=== PATIENT | male | born 1955 | race Caucasian/White ===

== ENCOUNTER 2016-05-04 18:28 | Emergency (ER) | payer MEDICARE, OTHER ==
[2016-05-04 18:39] VITALS: RESP 18
--- NOTE | 2016-05-04 18:56 | ED ---
General Adult HPI - General Chief complaint: Recheck/Abnormal Lab/Rx Stated complaint: Choking Time Seen by Provider: 05/04/16 18:37 Source: EMS, RN notes reviewed Mode of arrival: EMS Limitations: altered mental status - History of Present Illness Initial comments: Patient is a 60-year-old male with chief complaint of choking on tacos this evening. Patient reports of this first-time his ever choked on food. Patient has a history of dementia. Patient reports that he has never tried to swallow or drink anything after choking. Patient denies any cough or shortness of breath at this time. Patient reports that he feels well this time. He states that he has no other pain or neck pain at this time. Patient denies any recent fever, chills, shortness of breath, chest pain, back pain, abdominal pain, nausea vomiting, numbness or tingling, dysuria or hematuria, constipation or diarrhea, headaches or visual changes, or any other current symptoms - Related Data Allergies Allergy/AdvReac Type Severity Reaction Status Date / Time No Known Allergies Allergy Verified 05/04/16 18:39 Review of Systems ROS Statement: Those systems with pertinent positive or pertinent negative responses have been documented in the HPI. ROS Other: All systems not noted in ROS Statement are negative. Past Medical History Past Medical History: Unable to Obtain, Dementia, Hypertension History of Any Multi-Drug Resistant Organisms: None Reported Past Surgical History: Unable to Obtain Past Psychological History: No Psychological Hx Reported Smoking Status: Never smoker Past Alcohol Use History: None Reported Past Drug Use History: None Reported General Exam - General Exam Comments Initial Comments: Patient is a pleasant 60-year-old male. No acute distress. Limitations: altered mental status General appearance: alert, in no apparent distress Head exam: Present: atraumatic, normocephalic, normal inspection Eye exam: Present: normal appearance, PERRL, EOMI. Absent: scleral icterus, conjunctival injection, periorbital swelling ENT exam: Present: normal exam, normal oropharynx, mucous membranes moist, other (Vision has somewhat of a muffled voice.) Neck exam: Present: normal inspection. Absent: tenderness, meningismus, lymphadenopathy Respiratory exam: Present: normal lung sounds bilaterally. Absent: respiratory distress, wheezes, rales, rhonchi, stridor Cardiovascular Exam: Present: regular rate, normal rhythm, normal heart sounds. Absent: systolic murmur, diastolic murmur, rubs, gallop, clicks GI/Abdominal exam: Present: soft, normal bowel sounds. Absent: distended, tenderness, guarding, rebound, rigid Extremities exam: Present: normal inspection, full ROM, normal capillary refill. Absent: tenderness, pedal edema, joint swelling, calf tenderness Back exam: Present: normal inspection Neurological exam: Present: alert, oriented X3, CN II-XII intact Psychiatric exam: Present: normal affect, normal mood Skin exam: Present: warm, dry, intact, normal color. Absent: rash Course Vital Signs 05/04/16 05/04/16 05/04/16 18:37 18:40 20:28 Temperature 98.5 F 97.2 F L Pulse Rate 81 72 Respiratory 18 18 18 Rate Blood Pressure 121/80 112/68 O2 Sat by Pulse 97 97 Oximetry Medical Decision Making - Medical Decision Making Patient is a 60-year-old male with chief complaint of choking on tacos this evening. Patient reports of this first-time his ever choked on food. Patient has a history of dementia. Patient reports that he has never tried to swallow or drink anything after choking. Patient denies any cough or shortness of breath at this time. Chest x-ray was reviewed and is negative for any acute process. Soft tissue neck x-ray was also obtained. No evidence of epiglottitis or swelling of the retropharyngeal structures. Patient will be discharged and cleared to go home at this time. Patient has been advised to remain on a thickened liquid diet until he can be cleared by his primary care physician or having a swallow study. Patient and patient's caregiver understand the treatment plan will comply. Return parameters were discussed. 05/04/16 19:19 Currently to decide any evidence for acute pulmonary disease. This is read by Dr. Vences. Soft tissue neck x-ray shows a negative study. Normal-appearing epiglottis. Retropharyngeal soft tissues are within normal limits. No radiopaque foreign body. - Radiology Data Radiology results: report reviewed Chest x-ray and soft tissue neck x-ray are negative for any acute process. No evidence of epiglottic Bernabe or retropharyngeal swelling. Chest x-ray shows no evidence of any pneumonias. Disposition Clinical Impression: Choking due to food (regurgitated) Disposition: HOME SELF-CARE Condition: Good Instructions: Foreign Body in Pharynx (ED) Additional Instructions: Patient is recommended to have thickened liquids until seen by primary care provider. They may need to do a swallow study determine if patient can continue with the normal consistency of food, patient may need a softened food diet for continued thickened liquids permanently. Return to emergency department if any alarming signs or symptoms occur. Referrals: Case Marrero MD [Primary Care Provider] - 1-2 days Time of Disposition: 19:25
--- NOTE | 2016-05-04 19:15 | XR ---
EXAMINATION TYPE: XR soft tissue neck DATE OF EXAM: 05/04/2016 7:06 PM COMPARISON: NONE HISTORY: pain TECHNIQUE: 2 views of the soft tissues of the neck are submitted. FINDINGS: The airway is patent. Normal appearing epiglottis. Retropharyngeal soft tissues are withi n normal limits. No evidence for radiopaque foreign body. IMPRESSION: Negative study
--- NOTE | 2016-05-04 19:15 | XR ---
EXAMINATION TYPE: XR chest 2V DATE OF EXAM: 05/04/2016 7:06 PM HISTORY: Shortness of breath. COMPARISON: 06/16/2010 TECHNIQUE: Single view of the chest is submitted. FINDINGS: Demonstrated are scattered senescent parenchymal change. COPD changes. There is no evidence for focal infiltrate. The heart is stable. Hilar and mediastinal structures are within normal limits. Degenerative changes are seen of the dorsal spine. IMPRESSION: 1. Chronic changes without evidence for acute pulmonary disease.
[2016-05-04 20:30] VITALS: BP 112/68; PULSE 72; TEMP 97.2
== END 2016-05-04 20:36 | disposition home or self-care (01) ==
LOC: EC 18:28
DX: T17.228A Food in pharynx causing other injury, initial encounter (principal)
CPT/HCPCS: 70360; 71020; 99283

== ENCOUNTER 2020-01-04 17:50 | Emergency (ER) | payer MEDICARE ==
--- NOTE | 2020-01-04 18:18 | ED ---
General Adult HPI - General Chief complaint: Fever Stated complaint: COVID Time Seen by Provider: 01/04/20 18:02 Source: patient, EMS Mode of arrival: EMS Limitations: no limitations - History of Present Illness Initial comments: Dictation was produced using [employer] dictation software. please excuse any grammatical, word or spelling errors. This patient was cared for during a federal and state declared state of emergency secondary to Covid 19 Chief Complaint: 64-year-old male sent in from a [facility] for positive cocaine RapidTest History of Present Illness: A C4-year-old male he has multiple comorbidities. He is currently a resident at [facility]. His past medical history dementia and hypertension. Sent to us for positive rapid Covid test. Patient is a poor historian at this time. This is allegedly his baseline. Apparently [facility] staff complaint of uncontrolled fevers. He was given alternating doses of Motrin and Tylenol. Patient does report some mild dyspnea and fever. Able to obtain serial mental status PHYSICAL EXAM: General Impression: Alert and oriented x2/4, not in acute distress HEENT: Normocephalic atraumatic, extra-ocular movements intact, pupils equal and reactive to light bilaterally, mucous membranes moist. Cardiovascular: Heart regular rate and rhythm Chest: Able to complete full sentences, no retractions, no tachypnea Abdomen: abdomen soft, non-tender, non-distended, no organomegaly Musculoskeletal: Pulses present and equal in all extremities, no peripheral edema Motor: no focal deficits noted Neurological: CN II-XII grossly intact, no focal motor or sensory deficits noted Skin: Intact with no visualized rashes Psych: Normal affect and mood ED course: 64-year-old male presents today with positive rapid rotavirus test and fevers. Vital signs upon arrival are within acceptable limits. Patient is not hypoxic. He is well-appearing. Patient repeatedly saying that he wants to go back home. Not showing any signs of respiratory distress.Laboratory evaluation obtained. CBC is unremarkable. Coag panel is negative. Metabolic panel shows mild hyponatremia 0 129. Slightly secondary to dehydration with a BUN of 29 and creatinine 0.76. CRP is 52.7. LDH is 499. D-dimer is positive. CT angios the chest shows no pulmonary embolus. Patient has stable vital signs please show any respiratory distress. He is not hypoxic. Patient will be discharge back to [facility]. Will need isolation for 14 days EKG interpretation: Ventricular rate 3, normal sinus rhythm,. Interval 1:30, QRS 100, QTC 425. No W[place] prolongation, no QTC prolongation, no ST or T-wave changes noted. No old EKG for comparison. Overall, this EKG is unremarkable - Related Data Home Medications Medication Instructions Recorded Confirmed Acetaminophen [Tylenol] 650 mg PEG/G-TUBE Q6H PRN 01/04/20 01/04/20 Docusate Oral Soln [Colace Oral 100 mg PEG/G-TUBE BID@0800,199901/04/20 01/04/20 Soln] Ipratropium-Albuterol Nebulize 3 ml INHALATION TID@0000,0800,1600 01/04/20 01/04/20 [Duoneb 0.5 mg-3 mg/3 ml Soln] Valproic Acid Oral Soln [Depakene 250 mg PEG/G-TUBE Q6H 01/04/20 01/04/20 Syrup] polyethylene glycoL 3350 [Miralax] 17 gm PEG/G-TUBE BID@0800,199901/04/20 01/04/20 traZODone HCL 100 mg PEG/G-TUBE HS@199901/04/20 01/04/20 Allergies Allergy/AdvReac Type Severity Reaction Status Date / Time hydrocodone Allergy Unknown Verified 01/04/20 21:21 Review of Systems ROS Statement: Those systems with pertinent positive or pertinent negative responses have been documented in the HPI. ROS Other: All systems not noted in ROS Statement are negative. Past Medical History Past Medical History: Unable to Obtain, Dementia, Hypertension History of Any Multi-Drug Resistant Organisms: None Reported Past Surgical History: Unable to Obtain Past Psychological History: No Psychological Hx Reported Smoking Status: Former smoker Past Alcohol Use History: None Reported Past Drug Use History: None Reported General Exam Limitations: no limitations Course Vital Signs 01/04/20 01/04/20 17:53 20:00 Temperature 98.8 F Pulse Rate 91 89 Respiratory 18 18 Rate Blood Pressure 112/75 O2 Sat by Pulse 95 Oximetry Medical Decision Making - Lab Data Result diagrams: 01/04/20 18:03 01/04/20 19:17 Lab Results 01/04/20 01/04/20 01/04/20 Range/Units 18:03 19:17 19:17 WBC 8.5 (3.8-10.6) k/uL RBC 4.02 L (4.30-5.90) m/uL Hgb 12.1 L (13.0-17.5) gm/dL Hct 37.6 L (39.0-53.0) % MCV 93.5 (80.0-100.0) fL MCH 30.0 (25.0-35.0) pg MCHC 32.1 (31.0-37.0) g/dL RDW 14.3 (11.5-15.5) % Plt Count 544 H (150-450) k/uL MPV 6.4 Neutrophils % (Manual) 70 % Band Neuts % (Manual) 5 % Lymphocytes % (Manual) 5 % Monocytes % (Manual) 17 % Metamyelocytes % 3 % Neutrophils # (Manual) 6.30 (1.3-7.7) k/uL Lymphocytes # (Manual) 0.43 L (1.0-4.8) k/uL Monocytes # (Manual) 1.45 H (0-1.0) k/uL Metamyelocytes # (Man) 0.26 H (0) k/uL Nucleated RBCs 0 (0-0) /100 WBC Manual Slide Review Performed PT 10.6 (9.0-12.0) sec INR 1.0 (<1.2) APTT 26.3 (22.0-30.0) sec D-Dimer 2.20 H (<0.60) mg/L FEU Sodium 129 L (137-145) mmol/L Potassium 4.5 (3.5-5.1) mmol/L Chloride 94 L (98-107) mmol/L Carbon Dioxide 31 H (22-30) mmol/L Anion Gap 4 mmol/L BUN 29 H (9-20) mg/dL Creatinine 0.76 (0.66-1.25) mg/dL Est GFR (CKD-EPI)AfAm >90 (>60 ml/min/1.73 sqM) Est GFR (CKD-EPI)NonAf >90 (>60 ml/min/1.73 sqM) Glucose 88 (74-99) mg/dL Plasma Lactic Acid Jack (0.7-2.0) mmol/L Calcium 8.8 (8.4-10.2) mg/dL Magnesium 1.8 (1.6-2.3) mg/dL Total Bilirubin 0.3 (0.2-1.3) mg/dL AST 36 (17-59) U/L ALT 20 (4-49) U/L Alkaline Phosphatase 66 (38-126) U/L Lactate Dehydrogenase 499 (313-618) U/L C-Reactive Protein 52.7 H (<10.0) mg/L Total Protein 6.2 L (6.3-8.2) g/dL Albumin 3.0 L (3.5-5.0) g/dL 01/04/20 Range/Units 19:17 WBC (3.8-10.6) k/uL RBC (4.30-5.90) m/uL Hgb (13.0-17.5) gm/dL Hct (39.0-53.0) % MCV (80.0-100.0) fL MCH (25.0-35.0) pg MCHC (31.0-37.0) g/dL RDW (11.5-15.5) % Plt Count (150-450) k/uL MPV Neutrophils % (Manual) % Band Neuts % (Manual) % Lymphocytes % (Manual) % Monocytes % (Manual) % Metamyelocytes % % Neutrophils # (Manual) (1.3-7.7) k/uL Lymphocytes # (Manual) (1.0-4.8) k/uL Monocytes # (Manual) (0-1.0) k/uL Metamyelocytes # (Man) (0) k/uL Nucleated RBCs (0-0) /100 WBC Manual Slide Review PT (9.0-12.0) sec INR (<1.2) APTT (22.0-30.0) sec D-Dimer (<0.60) mg/L FEU Sodium (137-145) mmol/L Potassium (3.5-5.1) mmol/L Chloride (98-107) mmol/L Carbon Dioxide (22-30) mmol/L Anion Gap mmol/L BUN (9-20) mg/dL Creatinine (0.66-1.25) mg/dL Est GFR (CKD-EPI)AfAm (>60 ml/min/1.73 sqM) Est GFR (CKD-EPI)NonAf (>60 ml/min/1.73 sqM) Glucose (74-99) mg/dL Plasma Lactic Acid Jack 0.8 (0.7-2.0) mmol/L Calcium (8.4-10.2) mg/dL Magnesium (1.6-2.3) mg/dL Total Bilirubin (0.2-1.3) mg/dL AST (17-59) U/L ALT (4-49) U/L Alkaline Phosphatase (38-126) U/L Lactate Dehydrogenase (313-618) U/L C-Reactive Protein (<10.0) mg/L Total Protein (6.3-8.2) g/dL Albumin (3.5-5.0) g/dL Disposition Clinical Impression: COVID-19 Disposition: HOME SELF-CARE Condition: Fair Instructions (If sedation given, give patient instructions): Fever in Adults (ED) Additional Instructions: Today you were evaluated for symptoms consistent with upper respiratory infection. There is concern that perhaps your symptomatology may represent C ovid 19. Your are stable for discharge, however it is instructed to to seek immediate medical attention especially if you develop worsening symptoms especially respiratory distress. In the meantime please remain in quarantine for 14 days. For any other questions please contact [facility] for here in emergency department or [facility] at [phone] Patient will need isolation for 14 days. Is patient prescribed a controlled substance at d/c from ED?: No Referrals: Yoni Cruz MD [Primary Care Provider] - 1-2 days Time of Disposition: 22:01
--- NOTE | 2020-01-04 18:37 | XR ---
EXAMINATION TYPE: XR chest 1V portable DATE OF EXAM: 01/04/2020 COMPARISON: 05/04/2016 HISTORY: Hypertension TECHNIQUE: FINDINGS: There is no heart failure nor confluent pneumonic infiltrate. Costophrenic angles are clear . There is some coarsening of the interstitial markings left lower lobe. There is mild pleural thicke chris at the left lung apex. Bony thorax is intact. IMPRESSION: There is some mild pleural thickening left lung apex unchanged. There is a new mild inter stitial infiltrate left lung base compared to old exam. Normal heart.
[2020-01-04 19:32] LABS: HCT 37.6 % (39.0-53.0); HGB 12.1 gm/dL (13.0-17.5); MCHC 32.1 g/dL (31.0-37.0); MCV 93.5 fL (80.0-100.0); Mean Platelet Volume 6.4; Platelet Count 544 k/uL (150-450); RBC 4.02 m/uL (4.30-5.90); RDW 14.3 % (11.5-15.5); WBC 8.5 k/uL (3.8-10.6)
[2020-01-04 19:44] LABS: ALT 20 U/L (4-49); AST 36 U/L (17-59); African American GFR (CKD) >90 (>60 ml/min/1.73 sqM); Alkaline Phosphatase 66 U/L (38-126); Anion Gap 4 mmol/L; Blood Urea Nitrogen 29 mg/dL (9-20); C Reactive Protein 52.7 mg/L (<10.0); Calcium 8.8 mg/dL (8.4-10.2); Carbon Dioxide 31 mmol/L (22-30); Chloride 94 mmol/L (98-107); Glucose 88 mg/dL (74-99); LDH 499 U/L (313-618); Magnesium 1.8 mg/dL (1.6-2.3); Non-African American GFR(CKD) >90 (>60 ml/min/1.73 sqM); Potassium 4.5 mmol/L (3.5-5.1); Sodium 129 mmol/L (137-145); Total Bilirubin 0.3 mg/dL (0.2-1.3); Total Protein 6.2 g/dL (6.3-8.2)
[2020-01-04 19:52] LABS: Partial Thromboplastin Time 26.3 sec (22.0-30.0); Prothrombin Time 10.6 sec (9.0-12.0)
[2020-01-04 20:00] LABS: D-Dimer 2.2 mg/L FEU (<0.60)
[2020-01-04 20:04] VITALS: PULSE 89
--- NOTE | 2020-01-04 21:43 | CT ---
EXAMINATION TYPE: CT angio chest DATE OF EXAM: 01/04/2020 COMPARISON: None HISTORY: elevated d-dimer CT DLP: 275..3 mGycm Automated exposure control for dose reduction was used. CONTRAST: Performed with IV Contrast, patient injected with 100 mL of Isovue 370. There are 3-D post processed images. There is some patchy scarring and atelectasis at the lung bases. Heart is borderline enlarged. There is no pericardial effusion. Exam limited by motion. There is some pleural calcification at the left p osterior lung base. There is no pleural fluid. There is no mediastinal adenopathy. There is normal co ntrast opacification of the pulmonary arteries. There are no filling defects. Ascending aorta measure s 3.8 cm. There are no hilar masses. There is mild spurring in the thoracic spine. IMPRESSION: No evidence of pulmonary embolism. There is scarring and atelectasis at the lung bases. There is probably some mild calcified pleural pl aque left lung base. Exam limited by motion.
[2020-01-04 21:56] LABS: Band Neutrophils % 5 %; Lymphocytes # (M) 0.43 k/uL (1.0-4.8); Metamyelocytes # (M) 0.26 k/uL (0); Metamyelocytes % 3 %; Monocytes # (M) 1.45 k/uL (0-1.0); Neutrophils % (M) 70 %; Nucleated Red Blood Cells 0 /100 WBC (0-0); Total Cells Counted 200
[2020-01-04] MEDS ORDERED: DEXAMETHASONE SOD PHOSPHATE 10 MG/ML 1 ML VIAL IV STA (22:01)
[2020-01-04 23:30] VITALS: BP 98/64; RESP 16; TEMP 98.9
[2020-01-05 03:34] LABS: Ferritin 314.2 ng/mL (22.0-322.0)
== END 2020-01-04 23:30 | disposition home or self-care (01) ==
LOC: EEVIPCON 17:50 → EC 17:50
DX: U07.1 COVID-19 (principal); I10 Essential (primary) hypertension; Z79.899 Other long term (current) drug therapy; Z88.5 Allergy status to narcotic agent; Z87.891 Personal history of nicotine dependence; E87.1 Hypo-osmolality and hyponatremia; E86.0 Dehydration
CPT/HCPCS: 36415; 93005; 85379; 80053; 82728; 83605; 83615; 83735; 85025; 85610; 85730; 86140; 87040; 84145; 71045; 71275; 99284; U0003; Q9967

== ENCOUNTER 2020-03-01 17:13 | Observation (INO) | payer MEDICARE, OTHER ==
--- NOTE | 2020-03-01 17:23 | ED ---
General Adult HPI - General Chief complaint: Recheck/Abnormal Lab/Rx Stated complaint: PULLED OUT PEG TUBE Time Seen by Provider: 03/01/20 17:16 Source: EMS Mode of arrival: EMS Limitations: altered mental status - History of Present Illness Initial comments: Patient presents to the ED by ambulance from his [facility] after he reportedly pulled out his PEG tube today. Patient's 20 Fr PEG tube was sent with the patient to the ED. Patient has cognitive impairment and is unable to provide any history at this time. ED nursing staff is attempting to call the patient's fdc at this time to obtain more details on when and where the patient's PEG tube was initially placed. - Related Data Home Medications Medication Instructions Recorded Confirmed Acetaminophen [Tylenol] 650 mg PEG/G-TUBE Q6H PRN 01/04/20 01/04/20 Docusate Oral Soln [Colace Oral 100 mg PEG/G-TUBE BID@0800,199901/04/20 01/04/20 Soln] Ipratropium-Albuterol Nebulize 3 ml INHALATION TID@0000,0800,1600 01/04/20 01/04/20 [Duoneb 0.5 mg-3 mg/3 ml Soln] Valproic Acid Oral Soln [Depakene 250 mg PEG/G-TUBE Q6H 01/04/20 01/04/20 Syrup] polyethylene glycoL 3350 [Miralax] 17 gm PEG/G-TUBE BID@0800,199901/04/20 01/04/20 traZODone HCL 100 mg PEG/G-TUBE HS@199901/04/20 01/04/20 Allergies Allergy/AdvReac Type Severity Reaction Status Date / Time hydrocodone Allergy Unknown Verified 03/01/20 17:17 Review of Systems ROS Statement: Those systems with pertinent positive or pertinent negative responses have been documented in the HPI. ROS Other: All systems not noted in ROS Statement are negative. Limitations: ROS unobtainable due to patients medical condition Past Medical History Past Medical History: Unable to Obtain, Dementia, Hypertension Additional Past Medical History / Comment(s): covid december 2019 History of Any Multi-Drug Resistant Organisms: None Reported Past Surgical History: Unable to Obtain Past Psychological History: No Psychological Hx Reported Smoking Status: Former smoker Past Alcohol Use History: None Reported Past Drug Use History: None Reported General Exam Limitations: altered mental status General appearance: alert, in no apparent distress Head exam: Present: atraumatic, normocephalic Eye exam: Present: normal appearance ENT exam: Present: mucous membranes moist Neck exam: Present: other (Trachea is in midline) Respiratory exam: Present: normal lung sounds bilaterally. Absent: respiratory distress, wheezes, rales, rhonchi, stridor Cardiovascular Exam: Present: regular rate, normal rhythm, normal heart sounds, other (Normal radial pulses bilaterally) GI/Abdominal exam: Present: soft, normal bowel sounds, other (Feeding tube stoma is noted on examination). Absent: distended, tenderness, guarding Neurological exam: Present: alert Skin exam: Present: warm, dry, intact, normal color Course Vital Signs 03/01/20 17:14 Temperature 97.4 F L Pulse Rate 83 Respiratory 18 Rate Blood Pressure 107/87 O2 Sat by Pulse 93 L Oximetry - Reevaluation(s) Reevaluation #1: 03/01/20 17:49 [facility] reports that the patient's PEG tube was placed on 12/20/2019 at [facility]. 03/01/20 18:59 There is no 20 Fr feeding tube available for placement in our hospital. I attempted to place an 18 Fr feeding tube, but I was unsuccessful. 03/01/20 19:03 Case and H&P were discussed with Dr. Saunders (GI). She recommends attempted to place a small Coats catheter in the patient's feeding tube stoma if possible. She recommends admitting the patient to his primary care service, and she states that she will replace the patient's feeding tube tomorrow. She has no further recommendations at this time. 03/01/20 19:04 Case, H&P and my discussion with Dr. Saunders as above were discussed with Dr. Patel. He accepts hospital admission. He has no further recommendations at this time. 03/01/20 19:11 I was able to successfully place a 14 Fr catheter in the patient's feeding tube stoma. Disposition Clinical Impression: Encounter for feeding tube placement Disposition: ADMITTED IP TO THIS HOSP Condition: Stable Is patient prescribed a controlled substance at d/c from ED?: No Referrals: Yoni Cruz MD [Primary Care Provider] - 1-2 days Time of Disposition: 19:06
[2020-03-01] MEDS: SODIUM CHLORIDE 0.9% 1,000 ML IV SCH (19:59)
[2020-03-02] MEDS: SODIUM CHLORIDE 0.9% 1,000 ML IV SCH (07:33)
[2020-03-02 08:21] VITALS: BP 101/65; PULSE 116; RESP 16; TEMP 98.7
[2020-03-02 09:55] VITALS: BMI 15.7
[2020-03-02] MEDS ORDERED: ACETAMINOPHEN TAB 325 MG TAB PEG/G-TUBE PRN (12:56)
[2020-03-02] MEDS ORDERED: polyethylene glycoL 3350 17 GM POWD.PACK PEG/G-TUBE PRN (12:56)
[2020-03-02] MEDS ORDERED: bisacodyL 10 MG SUPP RECTAL PRN (12:56)
[2020-03-02] MEDS ORDERED: VALPROIC ACID ORAL SOLN 250 MG/5 ML CUP PEG/G-TUBE SCH (13:00)
--- NOTE | 2020-03-02 13:04 | CONS ---
CONSULTATION DATE OF DICTATION: March 02, 2020 Patient is a 64-year-old pleasant white male with history of dementia, a [facility] who had a PEG tube placement about a year ago. Came to the emergency room last night after the PEG tube was accidentally pulled out. In the ER, a 14-Dutch Coats catheter was placed to maintain ostomy site. The patient was admitted for PEG tube replacement today. He has history of severe cognitive impairment and history could not be obtained from the patient at all. As per the nursing staff, overnight, there were no complaints. PAST MEDICAL HISTORY: Significant for cognitive impairment on advanced dementia, hypertension. MEDICATIONS: Medications at home include Tylenol, Colace, DuoNeb, MiraLAX, Depakote, trazodone. ALLERGIES: HYDROCODONE. SOCIAL HISTORY: Former smoker. No alcohol use. FAMILY HISTORY: Could not be obtained. REVIEW OF SYSTEMS: Could not be obtained. PHYSICAL EXAMINATION: Appears comfortable. VITAL SIGNS: Stable. Blood pressure 130/82, pulse rate 70, temperature 97.9 HEENT examination: Unremarkable. Conjunctivae pink. Sclerae anicteric. Oral cavity no lesions. NECK no JVD. No lymph node enlargement. CHEST was clear auscultation. HEART: Regular rate and rhythm. Abdomen was soft. The PEG tube site appears normal. 14-Dutch Coats catheter in place. Extremities: Severe contractures. NEUROLOGIC: Awake but not oriented to name or place. LABS: No labs available from today. IMPRESSION: 1. This is a patient with a PEG tube placement about a year ago, who presented to the hospital after pulling out of the PEG tube accidentally in a [facility]. 14- Dutch Coats catheter was placed by the ER physician last night. 2. History of cognitive impairment and advanced dementia. 3. Hypertension. RECOMMENDATIONS: The previously placed Coats catheter was removed and a 14-Dutch Bard replacement PEG tube was placed on the existing ostomy site which was advanced into the stomach cavity and the balloon was inflated with 5 mL of saline. The external bubble was secured in good position. The patient tolerated the procedure well which was performed at the bedside. The PEG tube feeds can be resumed today. He can be [facility] back [facility]. Thank you for this consultation. MMODL / IJN: [id number] /
[2020-03-02] MEDS: IPRATROPIUM-ALBUTEROL 3 ML NEB INHALATION SCH ×2 (15:36→15:39)
[2020-03-02] MEDS ORDERED: BACLOFEN 10 MG TAB PO SCH (16:00)
[2020-03-02] MEDS ORDERED: risperiDONE 0.5 MG TAB PEG/G-TUBE SCH (16:00)
[2020-03-02] MEDS ORDERED: CLOTRIMAZOLE 1% CREAM 15 GM TUBE TOPICAL SCH (16:00)
[2020-03-02] MEDS ORDERED: HYDROCORTISONE 1% CREAM 30 GM TUBE TOPICAL SCH (20:00)
[2020-03-02] MEDS ORDERED: DOCUSATE ORAL SOLN 100 MG/10 ML CUP PEG/G-TUBE SCH (20:00)
[2020-03-02] MEDS ORDERED: traZODone HCL 100 MG TAB PEG/G-TUBE SCH (20:00)
--- NOTE | 2020-03-02 23:00 | P.HPIM ---
History of Present Illness H&P Date: 03/02/20 Chief Complaint: PEG tube came out History of presenting complaint: This is a 64-year-old patient follows with Dr. fisher, resident of [facility]. EMS was called out. Patient had pulled out his feeding tube. We'll resend out of the ER. Temperature via Coats catheter was placed. Dr. Jordan from was consulted. Patient has contracture of his limbs. Can answer some simple questions. Not in pain or distress. No fever chills reported. Review of systems patient cannot tell Past medical history to include: Dementia, hypertension, renal disease, seizure disorder, COVID in December 2019 Social history: Ex-smoker. [facility] Family history: Patient cannot tell Physical examination: VITAL SIGNS: 97.4, 83, 18, 107/87, 93% room air GENERAL: BMI 15.7, laying in bed, awake. EYES: [Pupils equal. Conjunctiva pale. HEENT: External appearance of nose and ears normal, oral cavity dry. NECK: JVD unable to assess; masses not palpable. HEART: First and second heart sounds are normal; no edema. LUNGS: Respiratory rate normal; clear to auscultation. ABDOMEN: Soft, nontender, liver spleen not palpable, no masses palpable, PEG tube site looks good. PSYCH: Patient can't tell his name does not know where he is on the yearl. NEUROLOGICAL: [Cranial nerves grossly intact; no facial asymmetry, extremities are contracted MUSCULAR skeletal: Diffuse wasting of muscles loss of subcutaneous fat, bony pro minences LYMPHATICS: No lymph nodes palpable in the axilla and neck Labs: None Assessment: -PEG tube accidentally pulled out by the patient. -Chronic medical debility -All 4 limbs contracture -Major cognitive impairment due to advance dementia -Severe protein calorie malnutrition with a BMI of 15.7 Plan: Dr. Michael Saunders from was consulted. To replace the PEG tube. In the interim Coats catheter was placed to get the medications. Past Medical History Past Medical History: Unable to Obtain, Cancer, Dementia, Hypertension, Renal Disease, Seizure Disorder Additional Past Medical History / Comment(s): covid december 2019 History of Any Multi-Drug Resistant Organisms: None Reported Past Surgical History: Unable to Obtain Past Anesthesia/Blood Transfusion Reactions: Unable to Obtain Past Psychological History: Unable to Obtain Smoking Status: Former smoker Past Alcohol Use History: None Reported Past Drug Use History: None Reported Medications and Allergies Home Medications Medication Instructions Recorded Confirmed Type Acetaminophen [Tylenol] 650 mg PEG/G-TUBE Q6H PRN 01/04/20 03/01/20 History Docusate Oral Soln [Colace Oral 100 mg PEG/G-TUBE BID@0800,199901/04/20 03/01/20 History Soln] Ipratropium-Albuterol Nebulize 3 ml INHALATION TID@0000,0800,1600 01/04/20 03/01/20 History [Duoneb 0.5 mg-3 mg/3 ml Soln] Valproic Acid Oral Soln [Depakene 250 mg PEG/G-TUBE Q6H 01/04/20 03/01/20 History Syrup] polyethylene glycoL 3350 [Miralax] 17 gm PEG/G-TUBE DAILY PRN 01/04/20 03/01/20 History traZODone HCL 100 mg PEG/G-TUBE HS@199901/04/20 03/01/20 History Baclofen 5 mg PO TID@0000,0800,1600 03/01/20 03/01/20 History Hydrocortisone Cream 1 applic TOPICAL BID@0800,199903/01/20 03/01/20 History [Hydrocortisone 2.5% Cream] Miconazole Nitrate [Lotrimin AF 1 applic TOPICAL BID@0800,1600 03/01/20 03/01/20 History Powder] bisacodyL [Bisacodyl] 10 mg RECTAL Q72H PRN 03/01/20 03/01/20 History risperiDONE [RisperDAL] 0.5 mg PEG/G-TUBE BID@0800,1600 03/01/20 03/01/20 History Allergies Allergy/AdvReac Type Severity Reaction Status Date / Time hydrocodone Allergy Unknown Verified 03/01/20 19:40 Physical Exam Vitals: Vital Signs Temp Pulse Pulse Resp BP BP BP 03/02/20 08:00 98.7 F 116 H 16 101/65 03/02/20 02:00 97.9 F 70 20 119/79 03/01/20 20:50 98.4 F 89 18 122/60 03/01/20 20:16 97.4 F L 88 18 95/67 03/01/20 19:59 88 18 95/67 03/01/20 17:14 97.4 F L 83 18 107/87 Pulse Ox 03/02/20 08:00 98 03/02/20 02:00 96 03/01/20 20:50 96 03/01/20 20:16 94 L 03/01/20 19:59 94 L 03/01/20 17:14 93 L Intake and Output 03/01/20 03/02/20 03/02/20 22:59 06:59 14:59 Intake Total 0 Balance 0 Intake: Oral 0 Other: Voiding Method Indwelling Catheter # Voids 4 Weight 57.153 kg 57.153 kg Thrombosis Risk Factor Assmnt - Choose All That Apply Each Risk Factor Represents 2 Points: Age 61-74 years, Patient confined to bed Thrombosis Risk Factor Assessment Total Risk Factor Score: 4 Thrombosis Risk Factor Assessment Level: Moderate Risk
--- NOTE | 2020-03-02 23:02 | P.DS ---
Providers Date of admission: 03/01/20 19:08 Expected date of discharge: 03/02/20 Attending physician: Raymond Patel Consults: 03/01/20 19:07 Consult Physician Urgent Consulting Provider: Lorrie Saunders Consult Reason/Comments: Dislodged feeding tube Do you want consulting provider notified?: Already Contacted Primary care physician: Yoni Cruz MD Hospital Course: Chief Complaint: PEG tube came out History of presenting complaint: This is a 64-year-old patient follows with Dr. cruz, resident of [facility]. EMS was called out. Patient had pulled out his feeding tube. We'll resend out of the ER. Temperature via Coats catheter was placed. Dr. Jordan from was consulted. Patient has contracture of his limbs. Can answer some simple questions. Not in pain or distress. No fever chills reported. PEG tube was replaced by Dr. Michael Saunders Consultation: Dr. Michael Saunders from Past medical history to include: Dementia, hypertension, renal disease, seizure disorder, COVID in December 2019 Social history: Ex-smoker. Currently at [facility] Family history: Patient cannot tell Physical examination: VITAL SIGNS: 97.4, 83, 18, 107/87, 93% room air GENERAL: BMI 15.7, laying in bed, awake. EYES: [Pupils equal. Conjunctiva pale. HEENT: External appearance of nose and ears normal, oral cavity dry. NECK: JVD unable to assess; masses not palpable. HEART: First and second heart sounds are normal; no edema. LUNGS: Respiratory rate normal; clear to auscultation. ABDOMEN: Soft, nontender, liver spleen not palpable, no masses palpable, PEG tube site looks good. PSYCH: Patient can't tell his name does not know where he is on the yearl. NEUROLOGICAL: [Cranial nerves grossly intact; no facial asymmetry, extremities are contracted MUSCULAR skeletal: Diffuse wasting of muscles loss of subcutaneous fat, bony prominences Labs: None Assessment: -PEG tube accidentally pulled out by the patient.-New one replaced -Chronic medical debility -All 4 limbs contracture -Major cognitive impairment due to advance dementia -Severe protein calorie malnutrition with a BMI of 15.7 Disposition: [facility]/ECF Patient Condition at Discharge: Stable Plan - Discharge Summary New Discharge Prescriptions: Continue Acetaminophen [Tylenol] 650 mg PEG/G-TUBE Q6H PRN PRN Reason: Pain Valproic Acid Oral Soln [Depakene Syrup] 250 mg PEG/G-TUBE Q6H Ipratropium-Albuterol Nebulize [Duoneb 0.5 mg-3 mg/3 ml Soln] 3 ml INHALATION TID@0000,0800,1600 polyethylene glycoL 3350 [Miralax] 17 gm PEG/G-TUBE DAILY PRN PRN Reason: Constipation Docusate Oral Soln [Colace Oral Soln] 100 mg PEG/G-TUBE BID@0800,1999 traZODone HCL 100 mg PEG/G-TUBE HS@1999 bisacodyL [Bisacodyl] 10 mg RECTAL Q72H PRN PRN Reason: Constipation risperiDONE [RisperDAL] 0.5 mg PEG/G-TUBE BID@0800,1600 Baclofen 5 mg PO TID@0000,0800,1600 Miconazole Nitrate [Lotrimin AF Powder] 1 applic TOPICAL BID@0800,1600 Hydrocortisone Cream [Hydrocortisone 2.5% Cream] 1 applic TOPICAL BID@0800,1999 Discharge Medication List Acetaminophen [Tylenol] 650 mg PEG/G-TUBE Q6H PRN 01/04/20 [History] Docusate Oral Soln [Colace Oral Soln] 100 mg PEG/G-TUBE BID@0800,199901/04/20 [History] Ipratropium-Albuterol Nebulize [Duoneb 0.5 mg-3 mg/3 ml Soln] 3 ml INHALATION TID@0000,0800,1600 01/04/20 [History] Valproic Acid Oral Soln [Depakene Syrup] 250 mg PEG/G-TUBE Q6H 01/04/20 [History] polyethylene glycoL 3350 [Miralax] 17 gm PEG/G-TUBE DAILY PRN 01/04/20 [History] traZODone HCL 100 mg PEG/G-TUBE HS@199901/04/20 [History] Baclofen 5 mg PO TID@0000,0800,1600 03/01/20 [History] Hydrocortisone Cream [Hydrocortisone 2.5% Cream] 1 applic TOPICAL BID@08,199903/01/20 [History] Miconazole Nitrate [Lotrimin AF Powder] 1 applic TOPICAL BID@0800,1600 03/01/20 [History] bisacodyL [Bisacodyl] 10 mg RECTAL Q72H PRN 03/01/20 [History] risperiDONE [RisperDAL] 0.5 mg PEG/G-TUBE BID@0800,1600 03/01/20 [History] Follow up Appointment(s)/Referral(s): Yoni Cruz MD [Primary Care Provider] - 1-2 days Discharge Disposition: TRANSFER TO SNF/ECF
== END 2020-03-02 18:05 ==
LOC: EC 17:13 → 5NMEDONC 19:08 → 4SSUR 20:01
PROVIDERS: ADMIT Hospitalist; ATTEND Hospitalist
DX: T85.528A Displacement of other gastrointestinal prosthetic devices, implants and grafts, initial encounter (principal); R53.81 Other malaise; M62.49 Contracture of muscle, multiple sites; F03.90 Unspecified dementia, unspecified severity, without behavioral disturbance, psychotic disturbance, mood disturbance, and anxiety; E43 Unspecified severe protein-calorie malnutrition; I10 Essential (primary) hypertension; G40.909 Epilepsy, unspecified, not intractable, without status epilepticus; Z79.899 Other long term (current) drug therapy; Z88.5 Allergy status to narcotic agent; Z86.19 Personal history of other infectious and parasitic diseases; Z87.891 Personal history of nicotine dependence; Z87.448 Personal history of other diseases of urinary system; Z68.1 Body mass index [BMI] 19.9 or less, adult; Z74.01 Bed confinement status
CPT/HCPCS: 99284; G0378 ×2

== ENCOUNTER 2020-03-10 18:13 | Emergency (ER) | payer MEDICARE, OTHER ==
[2020-03-10 18:26] VITALS: RESP 18; TEMP 98.2
--- NOTE | 2020-03-10 19:08 | ED ---
General Adult HPI - General Chief complaint: Recheck/Abnormal Lab/Rx Stated complaint: PEG tube Time Seen by Provider: 03/10/20 18:36 Source: patient, EMS, RN notes reviewed Mode of arrival: EMS Limitations: altered mental status, physical limitation - History of Present Illness Initial comments: Patient is a 64-year-old male with cognitive problems presenting to the emergency department from nursing facility for PEG tube replacement. Patient reportedly was here within the past 2 weeks with similar problem. Patient did reportedly remove his feeding tube today following his feeding. Patient is unable to provide any additional information. Patient has no complaints at this time. - Related Data Home Medications Medication Instructions Recorded Confirmed Acetaminophen [Tylenol] 650 mg PEG/G-TUBE Q6H PRN 01/04/20 03/10/20 Docusate Oral Soln [Colace Oral 100 mg PEG/G-TUBE BID@0800,159901/04/20 03/10/20 Soln] Ipratropium-Albuterol Nebulize 3 ml INHALATION TID@0000,0800,159901/04/20 03/10/20 [Duoneb 0.5 mg-3 mg/3 ml Soln] Valproic Acid Oral Soln [Depakene 250 mg PEG/G-TUBE Q6H 01/04/20 03/10/20 Syrup] polyethylene glycoL 3350 [Miralax] 17 gm PEG/G-TUBE DAILY PRN 01/04/20 03/10/20 traZODone HCL 100 mg PEG/G-TUBE HS@199901/04/20 03/10/20 Baclofen 5 mg PO TID@0000,0800,159903/01/20 03/10/20 Hydrocortisone Cream 1 applic TOPICAL BID@0800,199903/01/20 03/10/20 [Hydrocortisone 2.5% Cream] Miconazole Nitrate [Lotrimin AF 1 applic TOPICAL BID@0800,159903/01/20 03/10/20 Powder] bisacodyL [Bisacodyl] 10 mg RECTAL Q72H PRN 03/01/20 03/10/20 risperiDONE [RisperDAL] 0.5 mg PEG/G-TUBE BID@0800,159903/01/20 03/10/20 Docusate Oral Soln [Colace Oral 100 mg PEG/G-TUBE BID@0800,1600 03/10/20 03/10/20 Soln] Allergies Allergy/AdvReac Type Severity Reaction Status Date / Time hydrocodone Allergy Unknown Verified 03/01/20 19:40 Review of Systems ROS Statement: Those systems with pertinent positive or pertinent negative responses have been documented in the HPI. ROS Other: All systems not noted in ROS Statement are negative. Limitations: ROS unobtainable due to patients medical condition Past Medical History Past Medical History: Unable to Obtain, Cancer, Dementia, Hypertension, Renal Disease, Seizure Disorder Additional Past Medical History / Comment(s): covid december 2019 History of Any Multi-Drug Resistant Organisms: None Reported Past Surgical History: Unable to Obtain Past Anesthesia/Blood Transfusion Reactions: Unable to Obtain Past Psychological History: Unable to Obtain Smoking Status: Former smoker Past Alcohol Use History: None Reported Past Drug Use History: None Reported General Exam Limitations: altered mental status General appearance: alert, in no apparent distress Head exam: Present: atraumatic Eye exam: Present: normal appearance Neck exam: Present: normal inspection Respiratory exam: Present: normal lung sounds bilaterally Cardiovascular Exam: Present: regular rate, normal rhythm GI/Abdominal exam: Present: soft, other (Abdominal PEG tube site clean and dry ). Absent: tenderness Extremities exam: Present: other (Legs are contracted) Neurological exam: Present: alert Psychiatric exam: Present: normal affect, normal mood Skin exam: Present: normal color Course Vital Signs 03/10/20 18:16 Temperature 98.2 F Pulse Rate 81 Respiratory 18 Rate Blood Pressure 99/66 O2 Sat by Pulse 100 Oximetry Procedures - Feeding Tube Replacement Reason for Replacement: patient removed/pulled out Initial Tube Inserted: greater than 2 weeks (Reported as 1 year ago on previous documentation) Type of Tube: other (peg tube) Use of Tube: medications and feeding Insertion Site Prior to Procedure: clean Tube Used for Reinsertion: Bard (14) English Tube Size (F): 14 Balloon Size (mls): 4 Verification of Placement: auscultation Tube Secured by: G-tube attachment device Patient Tolerated Procedure: well, no complications Medical Decision Making - Radiology Data Radiology results: image reviewed (PEG tube with Gastrografin appears in appropriate position) Disposition Clinical Impression: Encounter for feeding tube placement Disposition: HOME SELF-CARE Condition: Stable Instructions (If sedation given, give patient instructions): How to Use and Care for Your PEG Tube (ED), Tube Feeding (DC) Additional Instructions: Please follow-up with primary care physician in the next day or 2 for recheck and repeat evaluation. Return for problems with tube, vomiting, worsening symptoms or other concerns. Is patient prescribed a controlled substance at d/c from ED?: No Referrals: Yoni Cruz MD [Primary Care Provider] - 1-2 days Time of Disposition: 19:44
--- NOTE | 2020-03-10 20:07 | XR ---
EXAMINATION TYPE: XR KUB DATE OF EXAM: 03/10/2020 COMPARISON: NONE HISTORY: Check tube placement TECHNIQUE: Single view. 25 mL of Isovue was injected into the gastrostomy tube. FINDINGS: There is contrast opacification of the stomach. There is no extravasation. IMPRESSION: Gastrostomy tube is in good position.
[2020-03-10 20:15] VITALS: BP 102/70; PULSE 72
== END 2020-03-10 21:07 | disposition home or self-care (01) ==
LOC: EC 18:13
DX: Z46.59 Encounter for fitting and adjustment of other gastrointestinal appliance and device (principal); F03.90 Unspecified dementia, unspecified severity, without behavioral disturbance, psychotic disturbance, mood disturbance, and anxiety; I10 Essential (primary) hypertension; G40.909 Epilepsy, unspecified, not intractable, without status epilepticus; Z79.899 Other long term (current) drug therapy; Z88.5 Allergy status to narcotic agent; Z87.891 Personal history of nicotine dependence
CPT/HCPCS: 43762; 74018; 99283

== ENCOUNTER 2020-03-15 15:05 | Inpatient (IN) | payer MEDICARE, OTHER ==
[2020-03-15] MEDS ORDERED: SODIUM CHLORIDE 0.9% 1,000 ML IV STA ×2 (15:12)
--- NOTE | 2020-03-15 15:31 | ED ---
General Adult HPI - General Chief complaint: Recheck/Abnormal Lab/Rx Stated complaint: Peg Tube Issue Time Seen by Provider: 03/15/20 15:05 Source: EMS, RN notes reviewed, old records reviewed Mode of arrival: EMS Limitations: no limitations - History of Present Illness Initial comments: This is a 64-year-old male with a history of cancer or hypertension renal disease Covid 19 in December of this past year seizure disorder and dementia who was sent in for evaluation for a nonfunctional PEG tube which was apparently discovered yesterday afternoon. They're unable to unplug it using [employer]. He was found on initial contact with EMS have a fever. He was somewhat tachycardic. He is a poor historian. He apparently did have his cough no other information available at this time - Related Data Home Medications Medication Instructions Recorded Confirmed Acetaminophen [Tylenol] 650 mg PEG/G-TUBE Q6H PRN 01/04/20 03/10/20 Docusate Oral Soln [Colace Oral 100 mg PEG/G-TUBE BID@0800,1600 01/04/20 03/10/20 Soln] Ipratropium-Albuterol Nebulize 3 ml INHALATION TID@0000,0800,1600 01/04/20 03/10/20 [Duoneb 0.5 mg-3 mg/3 ml Soln] Valproic Acid Oral Soln [Depakene 250 mg PEG/G-TUBE Q6H 01/04/20 03/10/20 Syrup] polyethylene glycoL 3350 [Miralax] 17 gm PEG/G-TUBE DAILY PRN 01/04/20 03/10/20 traZODone HCL 100 mg PEG/G-TUBE HS@199901/04/20 03/10/20 Baclofen 5 mg PO TID@0000,0800,1600 03/01/20 03/10/20 Hydrocortisone Cream 1 applic TOPICAL BID@0800,199903/01/20 03/10/20 [Hydrocortisone 2.5% Cream] Miconazole Nitrate [Lotrimin AF 1 applic TOPICAL BID@0800,1600 03/01/20 03/10/20 Powder] bisacodyL [Bisacodyl] 10 mg RECTAL Q72H PRN 03/01/20 03/10/20 risperiDONE [RisperDAL] 0.5 mg PEG/G-TUBE BID@0800,1600 03/01/20 03/10/20 Docusate Oral Soln [Colace Oral 100 mg PEG/G-TUBE BID@0800,1600 03/10/20 03/10/20 Soln] Allergies Allergy/AdvReac Type Severity Reaction Status Date / Time hydrocodone Allergy Unknown Verified 03/01/20 19:40 Review of Systems ROS Statement: Those systems with pertinent positive or pertinent negative responses have been documented in the HPI. ROS Other: All systems not noted in ROS Statement are negative. Limitations: ROS unobtainable due to patients medical condition Past Medical History Past Medical History: Unable to Obtain, Cancer, Dementia, Hypertension, Renal Di sease, Seizure Disorder Additional Past Medical History / Comment(s): covid december 2019 History of Any Multi-Drug Resistant Organisms: None Reported Past Surgical History: Unable to Obtain Past Anesthesia/Blood Transfusion Reactions: Unable to Obtain Past Psychological History: Unable to Obtain Smoking Status: Former smoker Past Alcohol Use History: None Reported Past Drug Use History: None Reported General Exam - General Exam Comments Initial Comments: This is a well-developed sec appearing male who is awake alert confused Limitations: no limitations ENT exam: Present: mucous membranes dry Neck exam: Present: normal inspection, full ROM. Absent: tenderness, meningismus, lymphadenopathy Respiratory exam: Present: decreased breath sounds Cardiovascular Exam: Present: regular rate, tachycardia GI/Abdominal exam: Present: soft, normal bowel sounds, other (PEG tube in pl taylor). Absent: distended, tenderness, guarding, rebound, rigid Extremities exam: Present: other (Contractures demonstrated) Neurological exam: Present: alert, altered, CN II-XII intact Psychiatric exam: Present: other (Unable to evaluate) Skin exam: Present: warm, dry, intact, normal color. Absent: rash Course Vital Signs 03/15/20 03/15/20 03/15/20 15:06 15:11 15:21 Temperature 100.5 F H 100.5 F H Pulse Rate 108 H 113 H Respiratory 16 16 20 Rate Blood Pressure 98/62 96/69 O2 Sat by Pulse 95 95 Oximetry 03/15/20 03/15/20 03/15/20 15:36 15:51 16:06 Temperature 100.7 F H 100.6 F H 100.7 F H Pulse Rate 110 H 110 H 112 H Respiratory 20 21 20 Rate Blood Pressure 111/66 107/73 113/73 O2 Sat by Pulse 95 95 95 Oximetry 03/15/20 17:18 Temperature 102.2 F H Pulse Rate 113 H Respiratory 22 Rate Blood Pressure 117/66 O2 Sat by Pulse 95 Oximetry - Reevaluation(s) Reevaluation #1: 03/15/20 17:50 Evaluation patient he says "this time. He does have sepsis criteria he did get adequate fluids totalbodyweighthereceivedIVfluidsIdiddiscuss thecasewithDr.[email or web address]. EKG Findings - EKG Results: EKG: interpreted by ERMD (Sinus tachycardia rate 108. Interval 126 QRS 90 QT/QTC 318/426 artifact present) Procedures - Procedures Initial comment: The #14 Hungarian PEG tube was nonfunctional and occluded. I did place a new 14- Hungarian PEG tube without difficulty after removal of the old one. There was aspiration of gastric contents was noted I did fill out the balloon with about 5 mL of normal saline. Medical Decision Making - Lab Data Result diagrams: 03/15/20 15:29 03/15/20 15:29 Lab Results 03/15/20 03/15/20 03/15/20 Range/Units 15:29 15:29 15:29 WBC 14.6 H (3.8-10.6) k/uL RBC 4.04 L (4.30-5.90) m/uL Hgb 11.6 L (13.0-17.5) gm/dL Hct 35.2 L (39.0-53.0) % MCV 87.1 (80.0-100.0) fL MCH 28.6 (25.0-35.0) pg MCHC 32.9 (31.0-37.0) g/dL RDW 14.7 (11.5-15.5) % Plt Count 550 H (150-450) k/uL MPV 6.4 Neutrophils % 88 % Lymphocytes % 5 % Monocytes % 5 % Eosinophils % 1 % Basophils % 1 % Neutrophils # 12.8 H (1.3-7.7) k/uL Lymphocytes # 0.7 L (1.0-4.8) k/uL Monocytes # 0.7 (0-1.0) k/uL Eosinophils # 0.2 (0-0.7) k/uL Basophils # 0.1 (0-0.2) k/uL Sodium 133 L (137-145) mmol/L Potassium 5.4 H (3.5-5.1) mmol/L Chloride 95 L (98-107) mmol/L Carbon Dioxide 30 (22-30) mmol/L Anion Gap 8 mmol/L BUN 20 (9-20) mg/dL Creatinine 0.46 L (0.66-1.25) mg/dL Est GFR (CKD-EPI)AfAm >90 (>60 ml/min/1.73 sqM) Est GFR (CKD-EPI)NonAf >90 (>60 ml/min/1.73 sqM) Glucose 110 H (74-99) mg/dL Plasma Lactic Acid Jack 3.2 H* (0.7-2.0) mmol/L Calcium 9.1 (8.4-10.2) mg/dL Magnesium 1.7 (1.6-2.3) mg/dL Total Bilirubin 0.6 (0.2-1.3) mg/dL AST 40 (17-59) U/L ALT 20 (4-49) U/L Alkaline Phosphatase 81 (38-126) U/L Creatine Kinase 106 (55-170) U/L Total Protein 7.5 (6.3-8.2) g/dL Albumin 3.5 (3.5-5.0) g/dL Lipase 78 (23-300) U/L Critical Care Time Critical Care Time: Yes Total Critical Care Time: 37 Critical Care Time: Critical care time includes the initial presentation with history physical labs x-rays multiple reevaluation the patient response to therapy and this does not include the PEG tube insertion time. Says include review of old charting discussed with Dr. Patel and admission orders Disposition Clinical Impression: Sepsis, Febrile illness, acute, Left lower lobe pneumonia, Tachycardia, Dehy dration, PEG tube malfunction Disposition: ADMITTED IP TO THIS HOSP Condition: Fair Referrals: Yoni Cruz MD [Primary Care Provider] - 1-2 days
[2020-03-15 15:43] LABS: Basophils # (A) 0.1 k/uL (0-0.2); Basophils % (A) 1 %; Eosinophils # (A) 0.2 k/uL (0-0.7); Eosinophils % (A) 1 %; HCT 35.2 % (39.0-53.0); HGB 11.6 gm/dL (13.0-17.5); Lymphocytes # (A) 0.7 k/uL (1.0-4.8); Lymphocytes % (A) 5 %; MCH 28.6 pg (25.0-35.0); MCHC 32.9 g/dL (31.0-37.0); MCV 87.1 fL (80.0-100.0); Mean Platelet Volume 6.4; Monocytes # (A) 0.7 k/uL (0-1.0); Monocytes % (A) 5 %; Neutrophils # (A) 12.8 k/uL (1.3-7.7); Neutrophils % (A) 88 %; Platelet Count 550 k/uL (150-450); RBC 4.04 m/uL (4.30-5.90); RDW 14.7 % (11.5-15.5); WBC 14.6 k/uL (3.8-10.6)
[2020-03-15 16:03] LABS: ALT 20 U/L (4-49); AST 40 U/L (17-59); African American GFR (CKD) >90 (>60 ml/min/1.73 sqM); Albumin 3.5 g/dL (3.5-5.0); Alkaline Phosphatase 81 U/L (38-126); Anion Gap 8 mmol/L; Blood Urea Nitrogen 20 mg/dL (9-20); Calcium 9.1 mg/dL (8.4-10.2); Carbon Dioxide 30 mmol/L (22-30); Chloride 95 mmol/L (98-107); Creatine Kinase 106 U/L (55-170); Glucose 110 mg/dL (74-99); Lipase 78 U/L (23-300); Magnesium 1.7 mg/dL (1.6-2.3); Non-African American GFR(CKD) >90 (>60 ml/min/1.73 sqM); Sodium 133 mmol/L (137-145); Total Bilirubin 0.6 mg/dL (0.2-1.3); Total Protein 7.5 g/dL (6.3-8.2)
[2020-03-15 16:04] LABS: Potassium 5.4 mmol/L (3.5-5.1)
--- NOTE | 2020-03-15 16:16 | XR ---
EXAMINATION TYPE: XR chest 2V DATE OF EXAM: 03/15/2020 COMPARISON: 01/04/2020 HISTORY: Fever TECHNIQUE: Single view FINDINGS: There is coarse interstitial infiltrate in both lungs. There is some coalescent density in the left lower lobe. Heart is enlarged. Very slight blunting of the posterior costophrenic angles the re are no hilar masses. Mediastinum is within normal limits. The thorax IMPRESSION: There is evidence of interstitial and airspace pneumonia that is more on the left lower l obe that appears new compared to old exam. mild heart failure not excluded.
[2020-03-15] MEDS ORDERED: cefTRIAXone IN SWFI 1,000 MG/10 ML SYRINGE IVP STA (17:04)
[2020-03-15] MEDS ORDERED: cefTRIAXone IN SWFI 1,000 MG/10 ML SYRINGE IVP ONE (17:15)
[2020-03-15] MEDS ORDERED: PNEUMONIA PROTOCOL UTILIZED 1 EACH MISC PO PRN (17:54)
[2020-03-15] MEDS ORDERED: AZITHROMYCIN 500 MG in SODIUM CHLORIDE 0.9% 250 ML IVPB STA (17:54)
[2020-03-15] MEDS ORDERED: bisacodyL 10 MG SUPP RECTAL PRN (17:56)
[2020-03-15] MEDS ORDERED: polyethylene glycoL 3350 17 GM POWD.PACK PEG/G-TUBE PRN (17:56)
[2020-03-15] MEDS ORDERED: ACETAMINOPHEN SUPPOSITORY 650 MG SUPP RECTAL STA (18:12)
[2020-03-15 18:26] LABS: Appearance,Urine Clear (Clear); Bacteria,Urine Many /hpf; Bilirubin,Urine Negative (Negative); Blood,Urine Negative (Negative); Color,Urine Yellow; Glucose,Urine (UA) Negative (Negative); Ketones,Urine Trace (Negative); Leukocyte Esterase,Urine Moderate (Negative); Mucus,Urine Few /hpf; Nitrite,Urine Positive (Negative); Protein,Urine Trace (Negative); RBC,Urine 2 /hpf (0-5); Specific Gravity,Urine 1.024 (1.001-1.035); Squamous Epithelial Cell,Urine 1 /hpf (0-4); WBC,Urine 34 /hpf (0-5)
[2020-03-15] MEDS: traZODone HCL 100 MG TAB PEG/G-TUBE SCH (21:41)
[2020-03-15] MEDS: TRIAMCINOLONE 0.1% CREAM 80 GM TUBE TOPICAL SCH (21:41)
[2020-03-15] MEDS: VALPROIC ACID ORAL SOLN 250 MG/5 ML CUP PEG/G-TUBE SCH (21:41)
--- NOTE | 2020-03-15 22:31 | P.HPIM ---
History of Present Illness H&P Date: 03/15/20 Chief Complaint: PEG tube pulled out History of presenting complaint: This is a 64-year-old patient follows with Dr. fisher, resident of [facility]. EMS was called out. Patient was just in the hospital 2 weeks ago and a PEG tube was replaced by Dr. Michael Saunders. The PEG tube has been plugged up. They did use Coca-Cola with no help. Coats catheter was placed in the ER. Patient is a himself a poor historian. Patient's chronic medical debility conditions including chronic medical debility, major cognitive impairment, severe protein calorie malnutrition. Patient is noted to have a fever in the ER. Tachycardic. Review of systems patient cannot tell Past medical history to include: Dementia, hypertension, renal disease, seizure disorder, COVID in December 2019, protein calorie malnutrition Social history: Ex-smoker. Currently at [facility] off [facility] Family history: Patient cannot tell Physical examination: VITAL SIGNS: 102.2, 113, 22, 117/66, 95% room air GENERAL: BMI 21.2,, laying in bed, awake. EYES: [Pupils equal. Conjunctiva pale. HEENT: External appearance of nose and ears normal, oral cavity dry. NECK: JVD unable to assess; masses not palpable. HEART: First and second heart sounds are normal; no edema. LUNGS: Respiratory rate normal; clear to auscultation. ABDOMEN: Soft, nontender, liver spleen not palpable, no masses palpable, Coats catheter the PEG tube site PSYCH: Patient can't tell his name does not know where he is on the yearl. NEUROLOGICAL: [Cranial nerves grossly intact; no facial asymmetry, extremities are contracted MUSCULAR skeletal: Diffuse wasting of muscles loss of subcutaneous fat, bony prominences LYMPHATICS: No lymph nodes palpable in the axilla and neck Labs: White count 14.6 hemoglobin 11.6 platelets 550 potassium 5.4 creatinine 0.46 lactic acid 3.2 UA positive for leukoesterase, WBC EKG tracing personally reviewed by me-shows normal sinus rhythm Chest x-ray film personally reviewed by me-infiltrates Assessment: -Pneumonia, suspect gram-negative orgasm, causing sepsis -PEG tube not functioning, did not respond to Coca-Cola -Chronic medical debility -All 4 limbs contracture -Major cognitive impairment due to advance dementia -Moderate protein calorie malnutrition, with extensive loss of muscle mass -Seizure disorder Plan: Dr. Michael Saundres from GI to be consulted for the PEG tube. Start the patient on IV Zosyn. Current Coats catheter may be used. Medication to be resumed. Past Medical History Past Medical History: Unable to Obtain, Cancer, Dementia, Hypertension, Renal Disease, Seizure Disorder Additional Past Medical History / Comment(s): covid december 2019 History of Any Multi-Drug Resistant Organisms: None Reported Past Surgical History: Unable to Obtain Past Anesthesia/Blood Transfusion Reactions: Unable to Obtain Past Psychological History: Unable to Obtain Smoking Status: Former smoker Past Alcohol Use History: None Reported Past Drug Use History: None Reported Medications and Allergies Home Medications Medication Instructions Recorded Confirmed Type Acetaminophen [Tylenol] 650 mg PEG/G-TUBE Q6H PRN 01/04/20 03/15/20 History Docusate Oral Soln [Colace Oral 100 mg PEG/G-TUBE BID@0800,159901/04/20 03/15/20 History Soln] Ipratropium-Albuterol Nebulize 3 ml INHALATION RT-Q8H 01/04/20 03/15/20 History [Duoneb 0.5 mg-3 mg/3 ml Soln] Valproic Acid Oral Soln [Depakene 250 mg PEG/G-TUBE Q6H 01/04/20 03/15/20 History Syrup] polyethylene glycoL 3350 [Miralax] 17 gm PEG/G-TUBE DAILY PRN 01/04/20 03/15/20 History traZODone HCL 100 mg PEG/G-TUBE HS@199901/04/20 03/15/20 History Baclofen 5 mg PEG/G-TUBE TID@0000,0800,1600 03/01/20 03/15/20 History Hydrocortisone Cream 1 applic TOPICAL BID@0800,199903/01/20 03/15/20 History [Hydrocortisone 2.5% Cream] Miconazole Nitrate [Lotrimin AF 1 applic TOPICAL BID@0800,1600 03/01/20 03/15/20 History Powder] bisacodyL [Bisacodyl] 10 mg RECTAL Q72H PRN 03/01/20 03/15/20 History risperiDONE [RisperDAL] 0.5 mg PEG/G-TUBE BID@0800,1600 03/01/20 03/15/20 History Allergies Allergy/AdvReac Type Severity Reaction Status Date / Time hydrocodone Allergy Unknown Verified 03/15/20 18:52 Physical Exam Vitals: Vital Signs Temp Pulse Resp BP Pulse Ox 03/15/20 17:18 102.2 F H 113 H 22 117/66 95 03/15/20 16:06 100.7 F H 112 H 20 113/73 95 03/15/20 15:51 100.6 F H 110 H 21 107/73 95 03/15/20 15:36 100.7 F H 110 H 20 111/66 95 03/15/20 15:21 100.5 F H 113 H 20 96/69 95 03/15/20 15:11 16 03/15/20 15:06 100.5 F H 108 H 16 98/62 95 Intake and Output 03/15/20 03/15/20 03/15/20 06:59 14:59 22:59 Other: Weight 77.111 kg Results CBC & Chem 7: 03/15/20 15:29 03/15/20 15:29 Labs: Abnormal Lab Results - Last 24 Hours (Table) 03/15/20 03/15/20 03/15/20 Range/Units 15:29 15:29 15:29 WBC 14.6 H (3.8-10.6) k/uL RBC 4.04 L (4.30-5.90) m/uL Hgb 11.6 L (13.0-17.5) gm/dL Hct 35.2 L (39.0-53.0) % Plt Count 550 H (150-450) k/uL Neutrophils # 12.8 H (1.3-7.7) k/uL Lymphocytes # 0.7 L (1.0-4.8) k/uL Sodium 133 L (137-145) mmol/L Potassium 5.4 H (3.5-5.1) mmol/L Chloride 95 L (98-107) mmol/L Creatinine 0.46 L (0.66-1.25) mg/dL Glucose 110 H (74-99) mg/dL Plasma Lactic Acid Jack 3.2 H* (0.7-2.0) mmol/L Urine Protein (Negative) Urine Ketones (Negative) Ur Leukocyte Esterase (Negative) Urine WBC (0-5) /hpf Urine Bacteria (None) /hpf Urine Mucus (None) /hpf 03/15/20 Range/Units 18:11 WBC (3.8-10.6) k/uL RBC (4.30-5.90) m/uL Hgb (13.0-17.5) gm/dL Hct (39.0-53.0) % Plt Count (150-450) k/uL Neutrophils # (1.3-7.7) k/uL Lymphocytes # (1.0-4.8) k/uL Sodium (137-145) mmol/L Potassium (3.5-5.1) mmol/L Chloride (98-107) mmol/L Creatinine (0.66-1.25) mg/dL Glucose (74-99) mg/dL Plasma Lactic Acid Jack (0.7-2.0) mmol/L Urine Protein Trace H (Negative) Urine Ketones Trace H (Negative) Ur Leukocyte Esterase Moderate H (Negative) Urine WBC 34 H (0-5) /hpf Urine Bacteria Many H (None) /hpf Urine Mucus Few H (None) /hpf
[2020-03-16] MEDS ORDERED: IPRATROPIUM-ALBUTEROL 3 ML NEB INHALATION SCH
[2020-03-16] MEDS: PIPERACILLIN-TAZOBACTAM 3.375 GM in SODIUM CHLORIDE 0.9% 100 ML IVPB SCH ×4 (00:31→23:56)
[2020-03-16] MEDS: BACLOFEN 10 MG TAB PO SCH ×4 (00:34→23:59)
[2020-03-16] MEDS: VALPROIC ACID ORAL SOLN 250 MG/5 ML CUP PEG/G-TUBE SCH ×5 (00:34→23:59)
[2020-03-16] MEDS: HEPARIN SODIUM,PORCINE 5,000 UNIT/ML 1 ML VIAL SQ SCH ×4 (00:34→23:59)
--- NOTE | 2020-03-16 07:53 | XR ---
EXAMINATION TYPE: XR chest 1V portable DATE OF EXAM: 03/16/2020 COMPARISON: 03/15/2020 INDICATION: Short of breath fever cough TECHNIQUE: Single frontal view of the chest is obtained. FINDINGS: The heart size is normal. The pulmonary vasculature is normal. Mild diffuse increased lung markings are present bilaterally. Findings are nonspecific. Correlate for atypical pneumonia. IMPRESSION: 1. Nonspecific increasing bilateral lung field markings. Correlate for atypical pneumonia.
[2020-03-16] MEDS: risperiDONE 0.5 MG TAB PEG/G-TUBE SCH ×2 (08:25→15:36)
[2020-03-16] MEDS: DOCUSATE ORAL SOLN 100 MG/10 ML CUP PEG/G-TUBE SCH ×2 (08:25→15:36)
[2020-03-16] MEDS: MICONAZOLE NITRATE TOPICAL SCH ×2 (08:26→15:36)
[2020-03-16] MEDS: TRIAMCINOLONE 0.1% CREAM 80 GM TUBE TOPICAL SCH ×2 (08:27→20:20)
[2020-03-16] MEDS: ALBUTEROL HFA INHALER INHALATION SCH ×3 (08:53→20:10)
--- NOTE | 2020-03-16 13:37 | CONS ---
CONSULTATION DATE OF SERVICE: 03/16/2020 REQUESTING PHYSICIAN: Yoni Cruz MD. REASON FOR CONSULTATION: PEG tube malfunction. HISTORY OF PRESENT ILLNESS: The patient is a 64-year-old white male with history of COVID-19 infection in December, history of seizure disorder and dementia, resident of [facility], who came to the emergency room yesterday for a PEG tube malfunction. Apparently in the ER, he was also having some tachycardia, fever, and hypertension. The ER physician tried to unplug the PEG tube using Coca-Cola but was not successful and hence the PEG tube was removed by him and a 14-[place] replacement PEG tube was inserted through the existing gastrostomy site and inflated and external bumper was placed at the 2 cm nathen. We are consulted in regard to management of this PEG tube. The patient is a very poor historian. As per the nursing staff for the PEG tube, she was able to give medications through the PEG tube without any problem today. PAST MEDICAL HISTORY: Significant for seizure disorder, dementia, hypertension, chronic kidney disease. PAST SURGICAL HISTORY: PEG tube placement several years ago. MEDICATIONS: Medications at home include Tylenol, Colace, DuoNeb, baclofen, trazodone, MiraLAX, Depakote, Lotrimin powder, bisacodyl, Risperdal, and Colace. ALLERGIES: HYDROCODONE. SOCIAL HISTORY: Unable to obtain. FAMILY HISTORY: Unable to obtain. PHYSICAL EXAMINATION: He appears comfortable. VITAL SIGNS: Stable. Blood pressure is 93/60, pulse 99, temperature 99.3. HEENT: Examination unremarkable. Conjunctivae are pink. Sclerae anicteric. Oral cavity no lesions. NECK: No JVD or lymph node enlargement. CHEST: Clear to auscultation. HEART: Regular rate and rhythm. ABDOMEN: PEG tube was examined. The gastrostomy site looks good. The PEG tube itself appeared normal and 60 cc of normal saline was flushed through the PEG tube and was intact and no occlusion noted. EXTREMITIES: The patient had no pedal edema, but he had contractures seen. NEURO: He is awake, but not oriented to name and place. LABS: WBC 14.6, hemoglobin 11.6, platelets 550. Basic metabolic panel sodium 133, potassium 5.4, chloride 95, CO2 30, BUN and creatinine are 20 and 0.46 respectively. Plasma lactic acid was 3.2. IMPRESSION: 1. PEG tube occlusion. It was replaced by the ER physician yesterday with a 14-[place] Islander PEG tube balloon replacement and this morning i have checked the PEG tube placement which appears to be in good position and 60 cc was injected through the PEG tube and there was no occlusion noted and this is ready to be used. 2. Febrile illness secondary to pneumonia with sepsis. On broad-spectrum antibiotics. 3. Lactic acidosis. 4. Recent COVID-19 infection in December of this year. 5. Severe cognitive impairment. 6. History of seizure disorder. RECOMMENDATION: 1. Okay to use the PEG tube for feeding at the present time. 2. Continue with broad-spectrum antibiotics. 3. If there are any issues with the PEG tube, please call us again. Thank you for this consultation. We will sign off at this time. MMODL / IJN: [id number] /
[2020-03-16] MEDS: AZITHROMYCIN 500 MG TAB PO SCH (17:10)
[2020-03-16] MEDS ORDERED: ALBUTEROL NEBULIZED 2.5 MG/3 ML INHALATION SCH (20:00)
[2020-03-16] MEDS: traZODone HCL 100 MG TAB PEG/G-TUBE SCH (20:19)
[2020-03-16] MEDS ORDERED: VANCOMYCIN IV PER PHARMACY 1 EACH MISC MISCELLANE PRN (20:40)
[2020-03-16] MEDS: VANCOMYCIN 1,500 MG in SODIUM CHLORIDE 0.9% 250 ML IVPB SCH (21:12)
--- NOTE | 2020-03-16 21:41 | P.PN ---
Progress Note - Text Progress Note Date: 03/16/20 Chief Complaint: PEG tube pulled out History of presenting complaint: This is a 64-year-old patient [facility] with Dr[facility]. EMS was called out. Patient was just in the hospital 2 weeks ago and a PEG tube was replaced by Dr. Michael Saunders. The PEG tube has been plugged up. They did use Coca-Cola with no help. Coats catheter was placed in the ER. Patient is a himself a poor historian. Patient's chronic medical debility condi tions including chronic medical debility, major cognitive impairment, severe protein calorie malnutrition. Patient is noted to have a fever in the ER. Tachycardic. Today-replaced PEG tube was working today. Patient is able to answer simple questions. Getting 2 feeding. Wound on the left hip. Stage IV. With some pus discharge. Review of systems: Was done for constitutional, cardiovascular, GI, pulmonary. relevant finding as above Past medical history to include: Dementia, hypertension, renal disease, seizure disorder, COVID in December 2019, protein calorie malnutrition Social history: Ex-smoker. Currently at [facility] off [facility] Family history: Patient cannot tell Physical examination: VITAL SIGNS: 98.5, 92, 19, 95/64, 93% room air GENERAL: BMI 21.2,, laying in bed, awake. EYES: Pupils equal. Conjunctiva pale. HEENT: External appearance of nose and ears normal, oral cavity dry. NECK: JVD unable to assess; masses not palpable. HEART: First and second heart sounds are normal; no edema. LUNGS: Respiratory rate normal; clear to auscultation. ABDOMEN: Soft, nontender, liver spleen not palpable, no masses palpable, Coats catheter the PEG tube site PSYCH: Patient can't tell his name does not know where he is on the yearl. NEUROLOGICAL: [Cranial nerves grossly intact; no facial asymmetry, extremities are contracted MUSCULAR skeletal: Diffuse wasting of muscles loss of subcutaneous fat, bony prominences DERMATOLOGICAL: Left hip stage IV decubitus ulcer, POA with some drainage Labs: White count 14.6 hemoglobin 11.6 platelets 550 potassium 5.4 creatinine 0.46 lactic acid 3.2 UA positive for leukoesterase, WBC EKG tracing personally reviewed by me-shows normal sinus rhythm Chest x-ray film personally reviewed by me-infiltrates Blood culture-[03/15/2020] gram-positive cocci Urine [id number] bacilli Assessment: -Pneumonia, suspect gram-negative orgasm, causing sepsis -Left hip stage IV decubitus ulcer, POA, possibly infected -Possible UTI with cystitis seconded to Coats catheter -Sepsis with positive blood cultures gram-positive cocci-new diagnosis -PEG tube initially not functioning-now working. -Chronic medical debility -All 4 limbs contracture -Major cognitive impairment due to advance dementia -Moderate protein calorie malnutrition, with extensive loss of muscle mass -Seizure disorder Plan: Continue IV Zosyn. PEG tube feeding resumed. Started on vancomycin-pharmacy to dose. Consult ID and Dr. Sharpe from vascular for possible debridement.
[2020-03-17] MEDS: VALPROIC ACID ORAL SOLN 250 MG/5 ML CUP PEG/G-TUBE SCH ×4 (04:54→23:11)
[2020-03-17] MEDS: VANCOMYCIN 1,500 MG in SODIUM CHLORIDE 0.9% 250 ML IVPB SCH (04:54)
[2020-03-17] MEDS: ALBUTEROL HFA INHALER INHALATION SCH ×3 (07:58→22:43)
[2020-03-17] MEDS: HEPARIN SODIUM,PORCINE 5,000 UNIT/ML 1 ML VIAL SQ SCH ×3 (09:26→23:11)
[2020-03-17] MEDS: DOCUSATE ORAL SOLN 100 MG/10 ML CUP PEG/G-TUBE SCH ×2 (09:26→17:55)
[2020-03-17] MEDS: risperiDONE 0.5 MG TAB PEG/G-TUBE SCH ×2 (09:27→17:54)
[2020-03-17] MEDS: PIPERACILLIN-TAZOBACTAM 3.375 GM in SODIUM CHLORIDE 0.9% 100 ML IVPB SCH ×3 (09:27→23:12)
[2020-03-17] MEDS: BACLOFEN 10 MG TAB PO SCH ×3 (09:27→23:11)
[2020-03-17 09:29] LABS: African American GFR (CKD) 145.5 (60.0-200.0); Non-African American GFR(CKD) 125.5 (60.0-200.0)
[2020-03-17] MEDS ORDERED: LIDOCAINE 1% INJ 10MG/ML (20 ML MDV) SQ ONE (12:13)
[2020-03-17] MEDS: MICONAZOLE NITRATE TOPICAL SCH ×2 (12:53→17:55)
[2020-03-17] MEDS: TRIAMCINOLONE 0.1% CREAM 80 GM TUBE TOPICAL SCH ×2 (12:53→21:06)
[2020-03-17] MEDS: VANCOMYCIN 1,000 MG in SODIUM CHLORIDE 0.9% 250 ML IVPB SCH ×2 (13:07→22:17)
--- NOTE | 2020-03-17 13:39 | P.GSCN ---
History of Present Illness History of present illness: 64-year-old gentleman admitted with multiple medical problem patient has a bilateral upper and lower extremity contracture of the limb patient has a large decubitus ulcer with some DVT last tissue. Patient has history of pneumonia with possible sepsis grade on examination patient has a contracture of the upper and lower extremity Lungs patient has some rhonchi bilateral Vascular examination could not be evaluated to from femoral pulses because of contracture of the hip left plantar hip has a large decubitus ulcer with some debridement last tissue plan is a debridement and we'll send for the deep culture follow with you Past Medical History Past Medical History: Unable to Obtain, Cancer, Dementia, Hypertension, Renal Disease, Seizure Disorder Additional Past Medical History / Comment(s): covid december 2019 History of Any Multi-Drug Resistant Organisms: None Reported Past Surgical History: Unable to Obtain Past Anesthesia/Blood Transfusion Reactions: Unable to Obtain Past Psychological History: Unable to Obtain Smoking Status: Former smoker Past Alcohol Use History: None Reported Past Drug Use History: None Reported Medications and Allergies Home Medications Medication Instructions Recorded Confirmed Type Acetaminophen [Tylenol] 650 mg PEG/G-TUBE Q6H PRN 01/04/20 03/15/20 History Docusate Oral Soln [Colace Oral 100 mg PEG/G-TUBE BID@0800,159901/04/20 03/15/20 History Soln] Ipratropium-Albuterol Nebulize 3 ml INHALATION RT-Q8H 01/04/20 03/15/20 History [Duoneb 0.5 mg-3 mg/3 ml Soln] Valproic Acid Oral Soln [Depakene 250 mg PEG/G-TUBE Q6H 01/04/20 03/15/20 History Syrup] polyethylene glycoL 3350 [Miralax] 17 gm PEG/G-TUBE DAILY PRN 01/04/20 03/15/20 History traZODone HCL 100 mg PEG/G-TUBE HS@199901/04/20 03/15/20 History Baclofen 5 mg PEG/G-TUBE TID@0000,0800,159903/01/20 03/15/20 History Hydrocortisone Cream 1 applic TOPICAL BID@0800,199903/01/20 03/15/20 History [Hydrocortisone 2.5% Cream] Miconazole Nitrate [Lotrimin AF 1 applic TOPICAL BID@0800,1600 03/01/20 03/15/20 History Powder] bisacodyL [Bisacodyl] 10 mg RECTAL Q72H PRN 03/01/20 03/15/20 History risperiDONE [RisperDAL] 0.5 mg PEG/G-TUBE BID@0800,1600 03/01/20 03/15/20 History Allergies Allergy/AdvReac Type Severity Reaction Status Date / Time hydrocodone Allergy Unknown Verified 03/15/20 18:52 Surgical - Exam Vital Signs Temp Pulse Resp BP Pulse Ox 100.5 F H 108 H 16 98/62 95 03/15/20 15:06 03/15/20 15:06 03/15/20 15:06 03/15/20 15:06 03/15/20 15:06 Results - Labs 03/15/20 15:29 03/17/20 05:10 Abnormal Lab Results - Last 24 Hours (Table) 03/17/20 Range/Units 05:10 Creatinine 0.4 L (0.6-1.5) mg/dL Microbiology - Last 24 Hours (Table) 03/15/20 15:29 Blood Culture Gram Stain - Preliminary Blood Blood Culture - Preliminary Coagulase Negative Staph 03/15/20 15:30 Blood Culture - Preliminary Blood No Growth after 24 hours 03/15/20 15:29 Blood Culture - Final Blood 03/15/20 18:11 Urine Culture - Preliminary Urine,Voided Gram Neg Bacilli Diabetes panel 03/17/20 Range/Units 05:10 Creatinine 0.4 L (0.6-1.5) mg/dL Pituitary panel 03/17/20 Range/Units 05:10 Creatinine 0.4 L (0.6-1.5) mg/dL Adrenal panel 03/17/20 Range/Units 05:10 Creatinine 0.4 L (0.6-1.5) mg/dL
--- NOTE | 2020-03-17 16:24 | CDI ---
Documentation Clarification Form Date: 03/17/2020 04:04:20 PM From: Haley Jackman RN CCDS Admit Date: 03/15/2020 05:54:00 PM Patient Name: Randall Yap I Visit Number: [id number] Discharge Date: ATTENTION: The Clinical Documentation Specialists (CDI) and [facility] Coding Staff appreciate your assistance in clarifying documentation. Please respond to the clarification below the line at the bottom and electronically sign. The CDI & [facility] Coding staff will review the response and follow-up if needed. Please note: Queries are made part of the Legal Health Record. If you have any questions, please contact the author of this message via ITS. Dr. Raymond Patel Conflicting documentation has been found in the medical record: Severe protein calorie malnutrition, documented in the H&P 03/15 and progress note 03/16 Moderate protein calorie malnutrition, documented in the H&P 03/15 and progress note 03/16 History/Risk Factors: 64-year-old male presents to the ED via EMS from [facility] for non-functioning peg tube and while in ED patient had a fever, was tachycardic with HTN. Medical history: Peg tube, bergman catheter, seizure disorder, dementia and chronic kidney disease. Clinical Indicators: Per the H&P 03/15: Patient described as Diffuse wasting of muscles, loss of subcutaneous fat, bony prominences. Per Internal Medicine progress note 03/16: Left hip stage IV decubitus ulcer. Treatment: Peg tube replacement in ED. Tube feeding formula Two Luis HN. Consult GI 03/16: I have checked the peg tube placement which appears to be in good position and 60cc was injected through the peg tube and there was no occlusion. Dietary Consult 03/16: Physical findings underweight. In your opinion, what is the most clinically appropriate diagnosis for this patient? * Severe protein calorie malnutrition * Moderate protein calorie malnutrition * Other explanation of clinical findings * Unable to determine (no explanation for clinical findings) (Last Revision: May 2017) Severe protein calorie malnutrition MTDD
--- NOTE | 2020-03-17 17:15 | OP ---
DATE OF PROCEDURE: 03/17/2020 OPERATIVE REPORT PREOPERATIVE DIAGNOSIS: Decubitus ulcer, lateral aspect of the left hip. POSTOPERATIVE DIAGNOSIS: Decubitus ulcer, lateral aspect of the left hip. MEASUREMENT: 4 x 3 cm. PROCEDURE DESCRIPTION: This patient was seen. Lateral aspect of the left hip was prepped and draped in usual sterile manner and 1% lidocaine infiltrated. There was some devitalized tissue. Using a sharp knife, we excised the devitalized tissue, and then we found that there was a cavity of abscess, which was drained. All the pus came out and all the devitalized tissue was excised with a sharp knife. We took deep culture and sent for culture and sensitivity. The wound was irrigated with saline and we placed an Aquacel Silver rope. We will change the dressing every other day. Measurement post wound debridement is 4 x 3 x 3 cm. Dressing applied. Patient will be followed regularly. MMODL / KARSTENN: [id number] / BRET
[2020-03-17] MEDS: AZITHROMYCIN 500 MG TAB PO SCH (17:54)
[2020-03-17] MEDS: ACETAMINOPHEN TAB 325 MG TAB PEG/G-TUBE PRN (18:05)
[2020-03-17] MEDS: traZODone HCL 100 MG TAB PEG/G-TUBE SCH (21:05)
--- NOTE | 2020-03-17 21:09 | P.PN ---
Progress Note - Text Progress Note Date: 03/17/20 Chief Complaint: PEG tube pulled out History of presenting complaint: This is a 64-year-old patient follows with Dr[facility] fisher[facility] EMS was called out. Patient was just in the hospital 2 weeks ago and a PEG tube was replaced by Dr. Michael Saunders. The PEG tube has been plugged up. They did use Coca-Cola with no help. Coats catheter was placed in the ER. Patient is a himself a poor historian. Patient's chronic medical debility condi tions including chronic medical debility, major cognitive impairment, severe protein calorie malnutrition. Patient is noted to have a fever in the ER. Tachycardic. PEG tube started working. Has a left hip stage IV decub. With purulent discharge. Today-taken to the OR by Dr. Angeles.-About 400 mL of pus was obtained. Deep pocket. I did inform cause placed. Review of systems: Was done for constitutional, cardiovascular, GI, pulmonary. relevant finding as above Past medical history to include: Dementia, hypertension, renal disease, seizure disorder, COVID in December 2019, protein calorie malnutrition Social history: Ex-smoker. Currently at [facility] off [facility] Family history: Patient cannot tell Physical examination: VITAL SIGNS: 98.9, 93, 18, 101/64, 92% room air GENERAL: BMI 21.2,, cardiac up in bed, awake EYES: Pupils equal. Conjunctiva pale. HEENT: External appearance of nose and ears normal, oral cavity dry. NECK: JVD unable to assess; masses not palpable. HEART: First and second heart sounds are normal; no edema. LUNGS: Respiratory rate normal; clear to auscultation. ABDOMEN: Soft, nontender, liver spleen not palpable, no masses palpable, Coats catheter the PEG tube site PSYCH: Patient can't tell his name does not know where he is on the yearl. NEUROLOGICAL: extremities are contracted MUSCULAR skeletal: Diffuse wasting of muscles loss of subcutaneous fat, bony prominences DERMATOLOGICAL: Left hip stage IV decubitus ulcer, POA with some drainage Labs: White count 14.6 hemoglobin 11.6 platelets 550 potassium 5.4 creatinine 0.46 la ctic acid 3.2 UA positive for leukoesterase, WBC EKG tracing personally reviewed by me-shows normal sinus rhythm Chest x-ray film personally reviewed by me-infiltrates Blood culture-[03/15/2020] gram-positive cocci Urine ssgxkfz-twwx-ehysysob bacilli Assessment: -Pneumonia, suspect gram-negative orgasm, causing sepsis -Left hip stage IV decubitus ulcer, POA, possibly infected -Left hip abscess, I&D large amount of pus obtained. -Possible UTI with cystitis seconded to Coats catheter -Sepsis with positive blood cultures gram-positive cocci-new diagnosis -PEG tube initially not functioning-now working. -Chronic medical debility -All 4 limbs contracture -Major cognitive impairment due to advance dementia -Moderate protein calorie malnutrition, with extensive loss of muscle mass -Seizure disorder Plan: Continue IV Zosyn., vancomycin. Discussed with Dr. Angeles from vascular. Parsely
--- NOTE | 2020-03-17 22:31 | CONS ---
CONSULTATION DATE OF SERVICE: 03/17/2020 REASON FOR CONSULTATION: Gram-positive bacteremia. HISTORY OF PRESENT ILLNESS: The patient is a 64-year-old male who is a resident of a local alf in this patient who did have a history of COVID-19 in December of last year, from which the patient recovered. Also with a history of seizure disorder and dementia. The patient did have a PEG tube for feeding and he was noticed by the alf to have a malfunctioning PEG tube. The patient was subsequently evaluated by the ER physician. As the PEG tube could not be unplugged, it was removed and replaced with another tube. Subsequently it has been evaluated by GI, who recommended no further workup; to continue using the PEG tube. Patient on admission to the hospital did have a fever of 100.5 and subsequently spiked a fever of 102.2 degrees Fahrenheit. The patient did have blood cultures drawn which subsequently came back positive with Gram-positive cocci and now have been finalized with coagulase-negative Staph. He was started on vancomycin. Infectious Disease was consulted for further management of antibiotic therapy. The patient also had a positive UA with urine finalized with E coli. He was noted to have a pressure ulcer to the left hip area that has been subsequently debrided by Vascular Surgery with evidence of underlying pus pocket that has been drained. Culture has been obtained. The patient is currently on vancomycin and Zosyn. Most of the information has been obtained from review of the chart and talking to nursing staff, as the patient himself is not a good historian. However, he was awake and alert at the time of evaluation, and when asked specifically, he denied having any chest pain or shortness of breath. He did have some cough but was not bringing up any sputum. No abdominal pain or diarrhea has been reported. Review of systems could not be completely obtained because of underlying dementia. The positive points have been mentioned in the HPI. PAST MEDICAL HISTORY: His past medical history is significant for dementia, hypertension seizure disorder, COVID-19 back in December. PAST SURGICAL HISTORY: PEG tube placement. SOCIAL HISTORY: Remote history of smoking. No drinking or drug use. FAMILY HISTORY: No pertinent findings noticed. ALLERGIES: HYDROCODONE. MEDICATIONS: The patient is currently on vancomycin, Pharmacy to dose. The patient is on Zosyn, Tylenol, Ventolin, Zithromax, baclofen, Dulcolax, heparin, MiraLAX, Risperdal, Desyrel, Kenalog. PHYSICAL EXAMINATION: Blood pressure is 109/69 with a pulse of 95, temperature 98.9. He is 93% on room air. General description is a middle-aged male lying in bed in no distress. No tachypnea or accessory muscle of respiration use. HEENT: Examination shows slight pallor. No scleral icterus. Oral mucous membrane is dry. No pharyngeal erythema or thrush. NECK: Trachea is central. No thyromegaly. LUNGS: Unlabored breathing. Decreased breath sounds at the base. No wheeze or crackle. HEART: S1, S2. Regular rate and rhythm. ABDOMEN: Soft. No tenderness. No guarding or rigidity. EXTREMITIES: No edema of feet. The patient did have a pressure ulcer to the left hip area with slough tissue, minimal surrounding swelling. No redness or any drainage. Neurologically the patient is awake, alert, oriented x2. Mood and affect normal. LABS: Hemoglobin is 11.6, white count 14.6, BUN of 20, creatinine 0.46. Lactic acid was 3.2. Repeat is 1.4. Liver enzymes are normal. Urine was positive. DIAGNOSTIC IMPRESSION AND PLAN: 1. Patient admitted to hospital with sepsis in this patient who did have fever, elevated white count. Source is likely UTI plus/minus an infected left heel pressure ulcer, status post drainage and drainage of the abscess cavity. Will need to cover for both Gram-positive as well as Gram-negative pathogens in this patient who is a alf resident. Clinical suspicion low for underlying pneumonia. 2. Positive blood culture with coagulase-negative Staphylococcus, likely skin contamination. PLAN: 1. We will keep the patient on vancomycin, Pharmacy to dose; target of 15 while watching his kidney function closely. 2. Discontinue Zosyn and start patient on Rocephin 2 grams daily. 3. Local wound care to the wound as ordered. 4. Will follow his clinical condition and culture to further adjust medication if needed. Thank you for this consultation. Will follow this patient along with you. MMODL / KARSTENN: [id number] / MTDD
[2020-03-18 05:53] LABS: Glucose,Whole Blood 119 mg/dL (75-99)
[2020-03-18] MEDS: VALPROIC ACID ORAL SOLN 250 MG/5 ML CUP PEG/G-TUBE SCH ×3 (05:56→17:20)
[2020-03-18] MEDS: VANCOMYCIN 1,000 MG in SODIUM CHLORIDE 0.9% 250 ML IVPB SCH ×3 (05:56→13:44)
[2020-03-18 06:39] LABS: HCT 30.7 % (39.0-53.0); Hypochromasia Slight; MCH 28.6 pg (25.0-35.0); MCHC 32.1 g/dL (31.0-37.0); MCV 89.1 fL (80.0-100.0); Mean Platelet Volume 6.4; Platelet Count 537 k/uL (150-450); RBC 3.45 m/uL (4.30-5.90); RDW 14.9 % (11.5-15.5); WBC 17.8 k/uL (3.8-10.6)
[2020-03-18 07:05] LABS: HGB 9.9 gm/dL (13.0-17.5)
[2020-03-18] MEDS: ALBUTEROL HFA INHALER INHALATION SCH ×3 (07:39→19:47)
[2020-03-18] MEDS: DOCUSATE ORAL SOLN 100 MG/10 ML CUP PEG/G-TUBE SCH ×2 (08:24→16:25)
[2020-03-18] MEDS: risperiDONE 0.5 MG TAB PEG/G-TUBE SCH ×2 (08:25→16:25)
[2020-03-18] MEDS: HEPARIN SODIUM,PORCINE 5,000 UNIT/ML 1 ML VIAL SQ SCH ×2 (08:25→16:25)
[2020-03-18] MEDS: BACLOFEN 10 MG TAB PO SCH ×2 (08:25→16:25)
[2020-03-18] MEDS: PIPERACILLIN-TAZOBACTAM 3.375 GM in SODIUM CHLORIDE 0.9% 100 ML IVPB SCH (08:25)
[2020-03-18] MEDS: MICONAZOLE NITRATE TOPICAL SCH ×2 (08:26→16:26)
[2020-03-18] MEDS: TRIAMCINOLONE 0.1% CREAM 80 GM TUBE TOPICAL SCH ×2 (08:26→19:13)
[2020-03-18 09:55] LABS: African American GFR (CKD) 56.2 (60.0-200.0); Anion Gap 6.1 mmol/L (4.00-12.00); BUN/Creat Ratio 14.67 Ratio (12.00-20.00); Calcium 8.5 mg/dL (8.7-10.3); Carbon Dioxide 28.9 mmol/L (21.6-31.8); Non-African American GFR(CKD) 48.5 (60.0-200.0); Potassium 5.1 mmol/L (3.5-5.5)
[2020-03-18 11:41] LABS: Glucose,Whole Blood 114 mg/dL (75-99)
[2020-03-18] MEDS ORDERED: VANCOMYCIN TROUGH DUE 1 EACH MISC MISCELLANE ONE (12:00)
[2020-03-18] MEDS ORDERED: VANCOMYCIN IV PER PHARMACY 1 EACH MISC MISCELLANE PRN (13:12)
--- NOTE | 2020-03-18 16:35 | PN ---
PROGRESS NOTE DATE OF SERVICE: 03/18/2020 REASON FOR FOLLOWUP: Left hip infected pressure ulcer and UTI. INTERVAL HISTORY: The patient is currently afebrile. The patient is awake but did not provide any history. No vomiting or any diarrhea has been reported or any change in his clinical condition. PHYSICAL EXAMINATION: Blood pressure 104/69, pulse of 109, temperature 98.8. He is 98% on 3 L nasal cannula. General description is a middle-aged male lying in bed in no distress. RESPIRATORY SYSTEM: Unlabored breathing. Coarse breath sounds bilaterally. No wheeze. HEART: S1, S2. Regular rate and rhythm. ABDOMEN: Soft. No tenderness. LABS: Hemoglobin is 9.9, white count 17.8. Creatinine is 1.5. Vancomycin trough is elevated at 33.1. DIAGNOSTIC IMPRESSION AND PLAN: Patient admitted to hospital with fever, source likely urinary tract infection and infected wound to the left heel. He is status post surgical debridement and drainage of an abscess. Culture will be followed. Vancomycin trough needs to be cut back to keep the trough around 15. Kidney function will be monitored closely. Continue with supportive care. MMODL / IJN: [id number] /
[2020-03-18 16:36] LABS: Glucose,Whole Blood 152 mg/dL (75-99)
[2020-03-18] MEDS: ACETAMINOPHEN TAB 325 MG TAB PEG/G-TUBE PRN (19:12)
[2020-03-18] MEDS: traZODone HCL 100 MG TAB PEG/G-TUBE SCH (19:13)
--- NOTE | 2020-03-18 22:15 | P.PN ---
Progress Note - Text Progress Note Date: 03/18/20 Chief Complaint: PEG tube pulled out History of presenting complaint: This is a 64-year-old patient [facility] Dr[facility] EMS was called out. Patient was just in the hospital 2 weeks ago and a PEG tube was replaced by Dr. Michael Saunders. The PEG tube has been plugged up. They did use [employer] with no help. Coats catheter was placed in the ER. Patient is a himself a poor historian. Patient's chronic medical debility condi tions including chronic medical debility, major cognitive impairment, severe protein calorie malnutrition. Patient is noted to have a fever in the ER. Tachycardic. PEG tube started working. Has a left hip stage IV decub. With purulent discharge.taken to the OR by Dr. Angeles.-About 400 mL of pus was obtained. Deep pocket. Aquacel gauze rope placed. Today-laying in bed. Getting 2 feeding. Dressing over the wound. Review of systems: Attempted for constitutional, cardiovascular, GI, pulmonary. relevant finding as above Past medical history to include: Dementia, hypertension, renal disease, seizure disorder, COVID in December 2019, protein calorie malnutrition Social history: Ex-smoker. [facility] Family history: Patient cannot tell Physical examination: VITAL SIGNS: 9 98.8, 109, 24, 104/69, 98% on 3 L GENERAL: BMI 21.2,, cardiac up in bed, awake EYES: Pupils equal. Conjunctiva pale. HEENT: External appearance of nose and ears normal, oral cavity dry. NECK: JVD unable to assess; masses not palpable. HEART: First and second heart sounds are normal; no edema. LUNGS: Respiratory rate normal; decreased breath sounds ABDOMEN: Soft, nontender, liver spleen not palpable, no masses palpable, PEG tube 2 feeding PSYCH: Answering simple questions NEUROLOGICAL: extremities are contracted MUSCULAR skeletal: Diffuse wasting of muscles loss of subcutaneous fat, bony prominences DERMATOLOGICAL: Dressing over the left hip wound. Stage IV Labs: March 18: White count 7.18 globin 9.9 platelets 537 potassium 5.1 creatinine 1.5 pro-calcitonin 0.20 White count 14.6 hemoglobin 11.6 platelets 550 potassium 5.4 creatinine 0.46 lactic acid 3.2 Wound birldhm-heqz-sfzuynpb bacilli UA positive for leukoesterase, WBC Urine culture-E. coli EKG tracing personally reviewed by me-shows normal sinus rhythm Chest x-ray film personally reviewed by me-infiltrates Blood culture-[03/15/2020] coagulase-negative staph Urine cxaedmc-avvq-wzmldrde bacilli Assessment: -Pneumonia, suspect gram-negative orgasm, causing sepsis -Left hip stage IV decubitus ulcer, POA, infected -Left hip abscess, I&D large amount of pus obtained. -Possible UTI with cystitis seconded to Coats catheter -Sepsis with positive blood cultures gram-positive cocci-new diagnosis -PEG tube initially not functioning-now working. -Chronic medical debility -All 4 limbs contracture -Major cognitive impairment due to advance dementia -Moderate protein calorie malnutrition, with extensive loss of muscle mass -Seizure disorder Plan: IV ceftriaxone,, vancomycin. Wound dressing per Dr. Angeles. Tolerating tube feeding. Prognosis guarded.
[2020-03-19] MEDS: VALPROIC ACID ORAL SOLN 250 MG/5 ML CUP PEG/G-TUBE SCH ×5 (00:09→23:26)
[2020-03-19] MEDS: BACLOFEN 10 MG TAB PO SCH ×4 (00:09→23:27)
[2020-03-19] MEDS: HEPARIN SODIUM,PORCINE 5,000 UNIT/ML 1 ML VIAL SQ SCH ×4 (00:09→23:27)
[2020-03-19 00:20] LABS: Glucose,Whole Blood 133 mg/dL (75-99)
[2020-03-19 05:50] LABS: Glucose,Whole Blood 134 mg/dL (75-99)
[2020-03-19] MEDS: ACETAMINOPHEN TAB 325 MG TAB PEG/G-TUBE PRN (06:21)
[2020-03-19 06:26] LABS: Basophils # (A) 0.1 k/uL (0-0.2); Basophils % (A) 0 %; Eosinophils # (A) 0.4 k/uL (0-0.7); Eosinophils % (A) 2 %; HCT 31.7 % (39.0-53.0); HGB 10.1 gm/dL (13.0-17.5); Hypochromasia Slight; Lymphocytes # (A) 0.4 k/uL (1.0-4.8); Lymphocytes % (A) 2 %; MCH 28.4 pg (25.0-35.0); MCHC 31.8 g/dL (31.0-37.0); MCV 89.3 fL (80.0-100.0); Mean Platelet Volume 6.3; Monocytes # (A) 1.2 k/uL (0-1.0); Monocytes % (A) 5 %; Neutrophils # (A) 20.3 k/uL (1.3-7.7); Neutrophils % (A) 90 %; Platelet Count 551 k/uL (150-450); RBC 3.54 m/uL (4.30-5.90); RDW 14.8 % (11.5-15.5); WBC 22.4 k/uL (3.8-10.6)
[2020-03-19 06:42] LABS: Vancomycin,Random 28.6 ug/mL
[2020-03-19 06:55] LABS: Carbon Dioxide 29 mmol/L (22-30); Chloride 108 mmol/L (98-107); Glucose 145 mg/dL (74-99); Potassium 5.1 mmol/L (3.5-5.1); Sodium 145 mmol/L (137-145)
[2020-03-19 06:56] LABS: ALT 12 U/L (4-49); AST 19 U/L (17-59); African American GFR (CKD) 35 (>60 ml/min/1.73 sqM); Albumin 2.7 g/dL (3.5-5.0); Albumin/Globulin Ratio 0.8; Alkaline Phosphatase 68 U/L (38-126); Anion Gap 8 mmol/L; Blood Urea Nitrogen 32 mg/dL (9-20); Calcium 8.8 mg/dL (8.4-10.2); Globulin 3.3 g/dL; Non-African American GFR(CKD) 31 (>60 ml/min/1.73 sqM); Total Bilirubin 0.2 mg/dL (0.2-1.3)
[2020-03-19] MEDS: MICONAZOLE NITRATE TOPICAL SCH ×2 (08:27→17:33)
[2020-03-19] MEDS: DOCUSATE ORAL SOLN 100 MG/10 ML CUP PEG/G-TUBE SCH ×2 (08:33→17:45)
[2020-03-19] MEDS: risperiDONE 0.5 MG TAB PEG/G-TUBE SCH ×2 (08:35→18:16)
[2020-03-19] MEDS: TRIAMCINOLONE 0.1% CREAM 80 GM TUBE TOPICAL SCH ×2 (08:36→20:01)
[2020-03-19] MEDS: ALBUTEROL HFA INHALER INHALATION SCH ×3 (08:47→20:05)
--- NOTE | 2020-03-19 10:40 | XR ---
EXAMINATION TYPE: XR chest 1V portable DATE OF EXAM: 03/19/2020 CLINICAL HISTORY: Cough and fever and shortness of breath progress study. TECHNIQUE: Single AP portable upright view of the chest is obtained. COMPARISON: Chest x-ray from 3 days earlier and older studies. CTA chest January 04, 2020 FINDINGS: Background chronic parenchymal changes with patchy bibasilar opacities on current study. C ardiac silhouette size is stable and upper limits of normal. Osseous structures are demineralized. Un derlying scoliosis redemonstrated. Old fracture left scapula again seen. IMPRESSION: Chronic changes with worsening bibasilar acute infiltrate and/or atelectasis on current s tudy.
[2020-03-19 11:46] LABS: Glucose,Whole Blood 127 mg/dL (75-99)
--- NOTE | 2020-03-19 12:04 | P.PN ---
Subjective Progress Note Date: 03/19/20 HISTORY OF PRESENT ILLNESS This is a 64-year-old male patient being followed for left hip infected pressure ulcer and UTI. Patient has been covered with Rocephin and vancomycin. Vancomycin is currently on hold due to toxic level of vancomycin. Patient is status post surgical debridement and drainage of left hip decubitus ulcer by Dr. Sharpe. Temperature max 100.3. Heart rate 130, respiratory rate 36, blood pressure 110/75, pulse ox 95% on 3 L. WBC 22.4, hemoglobin 10.1. BUN 32 and creatinine 2.2 which is increasing. Random vancomycin remains high at 28.6, critical trough yesterday at 33.1. Pro-calcitonin 0.2. Chest x-ray reveals chronic changes with worsening bibasilar acute infiltrate and/or atelectasis. PHYSICAL EXAMINATION Gen: This is a 64-year-old male, cachectic appearing. HEENT: Head is atraumatic, normocephalic. Pupils equal, round. Sclerae is anicteric. NECK: Supple. No JVD. No lymphadenopathy. LUNGS: Coarse breath sounds bilaterally. No intercostal retractions. HEART: Regular rate and rhythm. No murmur. ABDOMEN: Soft. Bowel sounds are present. No masses. No tenderness. EXTREMITIES: No pedal edema. No calf tenderness. ASSESSMENT Left hip infected pressure ulcer UTI Acute kidney injury PLAN Continue Rocephin, discontinue vancomycin Monitor kidney function closely Further recommendations patient progresses Continue supportive care. The above dictated assessment and findings were discussed with Dr. Espinoza. The impression and plan of care have been directed as dictated. Alyssa Jara nurse practitioner acting as scribe for Dr. Espinoza. Objective - Vital Signs Vital signs: Vital Signs Temp 100.1 F H 03/19/20 05:45 Pulse 57 L 03/19/20 05:45 Resp 25 H 03/19/20 05:45 BP 101/63 03/19/20 05:45 Pulse Ox 96 03/19/20 05:45 Intake & Output 03/18/20 03/19/20 03/19/20 18:59 06:59 18:59 Intake Total 440 Output Total 300 Balance 140 Weight 55 kg 55.5 kg Intake: Tube Feeding 440 Output: Urine 300 Other: Voiding Method External Catheter External Catheter - Labs CBC & Chem 7: 03/19/20 05:51 03/19/20 05:51 Labs: Abnormal Lab Results - Last 24 Hours (Table) 03/18/20 03/18/20 03/18/20 Range/Units 05:43 05:43 11:40 WBC (3.8-10.6) k/uL RBC (4.30-5.90) m/uL Hgb (13.0-17.5) gm/dL Hct (39.0-53.0) % Plt Count (150-450) k/uL Neutrophils # (1.3-7.7) k/uL Lymphocytes # (1.0-4.8) k/uL Monocytes # (0-1.0) k/uL Chloride (98-107) mmol/L BUN (9-20) mg/dL Creatinine (0.66-1.25) mg/dL Est GFR (CKD-EPI)AfAm 56.2 L (60.0-200.0) Est GFR (CKD-EPI)NonAf 48.5 L (60.0-200.0) Glucose 112 H (70-110) mg/dL POC Glucose (mg/dL) 114 H (75-99) mg/dL Calcium 8.5 L (8.7-10.3) mg/dL Total Protein (6.3-8.2) g/dL Albumin (3.5-5.0) g/dL Procalcitonin 0.20 H (0.02-0.09) ng/mL Vancomycin Trough ug/mL 03/18/20 03/18/20 03/19/20 Range/Units 11:55 16:34 00:18 WBC (3.8-10.6) k/uL RBC (4.30-5.90) m/uL Hgb (13.0-17.5) gm/dL Hct (39.0-53.0) % Plt Count (150-450) k/uL Neutrophils # (1.3-7.7) k/uL Lymphocytes # (1.0-4.8) k/uL Monocytes # (0-1.0) k/uL Chloride (98-107) mmol/L BUN (9-20) mg/dL Creatinine (0.66-1.25) mg/dL Est GFR (CKD-EPI)AfAm (60.0-200.0) Est GFR (CKD-EPI)NonAf (60.0-200.0) Glucose (70-110) mg/dL POC Glucose (mg/dL) 152 H 133 H (75-99) mg/dL Calcium (8.7-10.3) mg/dL Total Protein (6.3-8.2) g/dL Albumin (3.5-5.0) g/dL Procalcitonin (0.02-0.09) ng/mL Vancomycin Trough 33.1 H* ug/mL 03/19/20 03/19/20 03/19/20 Range/Units 05:48 05:51 05:51 WBC 22.4 H (3.8-10.6) k/uL RBC 3.54 L (4.30-5.90) m/uL Hgb 10.1 L (13.0-17.5) gm/dL Hct 31.7 L (39.0-53.0) % Plt Count 551 H (150-450) k/uL Neutrophils # 20.3 H (1.3-7.7) k/uL Lymphocytes # 0.4 L (1.0-4.8) k/uL Monocytes # 1.2 H (0-1.0) k/uL Chloride 108 H (98-107) mmol/L BUN 32 H (9-20) mg/dL Creatinine 2.20 H (0.66-1.25) mg/dL Est GFR (CKD-EPI)AfAm (60.0-200.0) Est GFR (CKD-EPI)NonAf (60.0-200.0) Glucose 145 H (70-110) mg/dL POC Glucose (mg/dL) 134 H (75-99) mg/dL Calcium (8.7-10.3) mg/dL Total Protein 6.0 L (6.3-8.2) g/dL Albumin 2.7 L (3.5-5.0) g/dL Procalcitonin (0.02-0.09) ng/mL Vancomycin Trough ug/mL Microbiology - Last 24 Hours (Table) 03/17/20 Unknown Gram Stain - Preliminary Buttock Wound Culture - Preliminary Gram Neg Bacilli 03/15/20 15:30 Blood Culture - Preliminary Blood No Growth after 72 hours 03/15/20 15:29 Blood Culture Gram Stain - Final Blood Blood Culture - Final Coagulase Negative Staph
--- NOTE | 2020-03-19 15:08 | P.CNPUL ---
History of Present Illness Consult date: 03/19/20 Requesting physician: Raymond Patel Reason for consult: other Chief complaint: Nonfunctioning PEG tube History of present illness: 64-year-old white male patient who is a poor historian, has history of advanced dementia, seizure disorder, chronic dysphagia, has a PEG tube in place for nutritional support, chronic kidney disease, overall chronic medical debility, chronic contractures of upper and lower extremities, patient is bedbound. Patient is a resident of a local [facility]. He had a history of COVID 19 infection in December 2019. Apparently at the [facility] patient's PEG tube became c logged, and the staff was unable tone clogged using Coca-[employer]. The PEG tube was recently replaced by Dr. Saunders 2 weeks prior. Patient has been tachycardic, and febrile in the emergency department, his temperature was 102.2F. His chest x- ray showed evidence of interstitial and airspace pneumonia in the left lower lobe. Patient had mild leukocytosis, with a white blood cell count of 14.6, lactic acid was elevated at 3.2, his LFTs were within normal limits, urinalysis showed possibility of underlying urinary tract infection, and urine cultures were positive for E. coli, patient also has a wound on his buttock, and urine culture was positive for gram-negative bacilli, fungal culture is pending, blood cultures from 03/15/2020 was positive for coagulase-negative staph. Patient is currently on azithromycin, Rocephin, and vancomycin, ID service is following, during her evaluation patient is resting quietly in bed, he is nonverbal, not providing any answers, he is currently on 3 L of oxygen a pulse ox of 95%, does not appear to be in any respiratory distress, he is afebrile today. He has 2 feedings going through his PEG tube with TwoCal at 45 ML per hour, tolerating tube feedings well, his chest x-ray from 03/19/2020 shows chronic changes with worsening bibasilar Infiltrates and/or atelectasis. Review of Systems All systems: negative Constitutional: Reports fever, Reports weakness, Denies chills Eyes: denies blurred vision, denies pain Ears, nose, mouth and throat: Denies headache, Denies sore throat Cardiovascular: Denies chest pain, Denies shortness of breath Respiratory: Reports dyspnea, Reports home oxygen, Reports respiratory infections, Denies cough Gastrointestinal: Denies abdominal pain, Denies diarrhea, Denies nausea, Denies vomiting Musculoskeletal: Denies myalgias Integumentary: Denies pruritus, Denies rash Neurological: Denies numbness, Denies weakness Psychiatric: Denies anxiety, Denies depression Endocrine: Denies fatigue, Denies weight change Past Medical History Past Medical History: Unable to Obtain, Cancer, Dementia, Hypertension, Renal Disease, Seizure Disorder Additional Past Medical History / Comment(s): covid december 2019 History of Any Multi-Drug Resistant Organisms: None Reported Past Surgical History: Unable to Obtain Past Anesthesia/Blood Transfusion Reactions: Unable to Obtain Past Psychological History: Unable to Obtain Smoking Status: Former smoker Past Alcohol Use History: None Reported Past Drug Use History: None Reported Medications and Allergies Home Medications Medication Instructions Recorded Confirmed Type Acetaminophen [Tylenol] 650 mg PEG/G-TUBE Q6H PRN 01/04/20 03/15/20 History Docusate Oral Soln [Colace Oral 100 mg PEG/G-TUBE BID@0800,159901/04/20 03/15/20 History Soln] Ipratropium-Albuterol Nebulize 3 ml INHALATION RT-Q8H 01/04/20 03/15/20 History [Duoneb 0.5 mg-3 mg/3 ml Soln] Valproic Acid Oral Soln [Depakene 250 mg PEG/G-TUBE Q6H 01/04/20 03/15/20 History Syrup] polyethylene glycoL 3350 [Miralax] 17 gm PEG/G-TUBE DAILY PRN 01/04/20 03/15/20 History traZODone HCL 100 mg PEG/G-TUBE HS@199901/04/20 03/15/20 History Baclofen 5 mg PEG/G-TUBE TID@0000,0800,1600 03/01/20 03/15/20 History Hydrocortisone Cream 1 applic TOPICAL BID@0800,199903/01/20 03/15/20 History [Hydrocortisone 2.5% Cream] Miconazole Nitrate [Lotrimin AF 1 applic TOPICAL BID@0800,1600 03/01/20 03/15/20 History Powder] bisacodyL [Bisacodyl] 10 mg RECTAL Q72H PRN 03/01/20 03/15/20 History risperiDONE [RisperDAL] 0.5 mg PEG/G-TUBE BID@0800,1600 03/01/20 03/15/20 History Allergies Allergy/AdvReac Type Severity Reaction Status Date / Time hydrocodone Allergy Unknown Verified 03/15/20 18:52 Physical Exam Vitals: Vital Signs Temp Pulse Resp BP BP Pulse Ox 03/19/20 09:11 98.4 F 130 H 36 H 110/75 95 03/19/20 08:30 130 H 32 H 03/19/20 05:45 100.1 F H 57 L 25 H 101/63 96 03/19/20 02:15 99.2 F 115 H 27 H 102/68 98 03/18/20 22:25 98.7 F 03/18/20 20:00 107 H 22 03/18/20 18:57 100.3 F H 107 H 22 107/67 97 Intake and Output 03/18/20 03/19/20 03/19/20 22:59 06:59 14:59 Intake Total 330 Output Total 300 Balance -300 330 Intake: Tube Feeding 330 Output: Urine 300 Other: Voiding Method External Catheter External Catheter Weight 55.5 kg 55.5 kg GENERAL EXAM: Confused, drowsy, 64-year-old white male, on 3 L of oxygen a pulse ox of 95%, comfortable in no apparent distress. HEAD: Normocephalic/atraumatic. EYES: Normal reaction of pupils, equal size. Conjunctiva pink, sclera white. NOSE: Clear with pink turbinates. THROAT: No erythema or exudates. NECK: No masses, no JVD, no thyroid enlargement, no adenopathy. CHEST: No chest wall deformity. Symmetrical expansion. LUNGS: Equal air entry with diminished breath sounds, no rhonchi, no wheezing CVS: Regular rate and rhythm, normal S1 and S2, no gallops, no murmurs, no rubs ABDOMEN: Soft, nontender. No hepatosplenomegaly, normal bowel sounds, no guarding or rigidity. PEG tube in place EXTREMITIES: No clubbing, no edema, no cyanosis, 2+ pulses and upper and lower extremities. MUSCULOSKELETAL: Muscle strength and tone normal. Left hip decubitus ulcer, covered the dressing SPINE: No scoliosis or deformity SKIN: No rashes CENTRAL NERVOUS SYSTEM: Confused, drowsy, No focal deficits, tone is normal in all 4 extremities. Results - Laboratory Findings CBC and BMP: 03/19/20 05:51 03/19/20 05:51 Abnormal lab findings: Abnormal Labs 03/15/20 03/15/20 03/15/20 15:29 15:29 15:29 WBC 14.6 H RBC 4.04 L Hgb 11.6 L Hct 35.2 L Plt Count 550 H Neutrophils # 12.8 H Lymphocytes # 0.7 L Monocytes # Sodium 133 L Potassium 5.4 H Chloride 95 L BUN Creatinine 0.46 L Est GFR (CKD-EPI)AfAm Est GFR (CKD-EPI)NonAf Glucose 110 H POC Glucose (mg/dL) Plasma Lactic Acid Jack 3.2 H* Calcium Total Protein Albumin Procalcitonin Urine Protein Urine Ketones Ur Leukocyte Esterase Urine WBC Urine Bacteria Urine Mucus Vancomycin Trough 03/15/20 03/17/20 03/18/20 18:11 05:10 05:43 WBC RBC Hgb Hct Plt Count Neutrophils # Lymphocytes # Monocytes # Sodium Potassium Chloride BUN Creatinine 0.4 L Est GFR (CKD-EPI)AfAm 56.2 L Est GFR (CKD-EPI)NonAf 48.5 L Glucose 112 H POC Glucose (mg/dL) Plasma Lactic Acid Jack Calcium 8.5 L Total Protein Albumin Procalcitonin Urine Protein Trace H Urine Ketones Trace H Ur Leukocyte Esterase Moderate H Urine WBC 34 H Urine Bacteria Many H Urine Mucus Few H Vancomycin Trough 03/18/20 03/18/20 03/18/20 05:43 05:43 05:51 WBC 17.8 H RBC 3.45 L Hgb 9.9 L D Hct 30.7 L Plt Count 537 H Neutrophils # Lymphocytes # Monocytes # Sodium Potassium Chloride BUN Creatinine Est GFR (CKD-EPI)AfAm Est GFR (CKD-EPI)NonAf Glucose POC Glucose (mg/dL) 119 H Plasma Lactic Acid Jack Calcium Total Protein Albumin Procalcitonin 0.20 H Urine Protein Urine Ketones Ur Leukocyte Esterase Urine WBC Urine Bacteria Urine Mucus Vancomycin Trough 03/18/20 03/18/20 03/18/20 11:40 11:55 16:34 WBC RBC Hgb Hct Plt Count Neutrophils # Lymphocytes # Monocytes # Sodium Potassium Chloride BUN Creatinine Est GFR (CKD-EPI)AfAm Est GFR (CKD-EPI)NonAf Glucose POC Glucose (mg/dL) 114 H 152 H Plasma Lactic Acid Jack Calcium Total Protein Albumin Procalcitonin Urine Protein Urine Ketones Ur Leukocyte Esterase Urine WBC Urine Bacteria Urine Mucus Vancomycin Trough 33.1 H* 03/19/20 03/19/20 03/19/20 00:18 05:48 05:51 WBC RBC Hgb Hct Plt Count Neutrophils # Lymphocytes # Monocytes # Sodium Potassium Chloride 108 H BUN 32 H Creatinine 2.20 H Est GFR (CKD-EPI)AfAm Est GFR (CKD-EPI)NonAf Glucose 145 H POC Glucose (mg/dL) 133 H 134 H Plasma Lactic Acid Jack Calcium Total Protein 6.0 L Albumin 2.7 L Procalcitonin Urine Protein Urine Ketones Ur Leukocyte Esterase Urine WBC Urine Bacteria Urine Mucus Vancomycin Trough 03/19/20 03/19/20 05:51 11:44 WBC 22.4 H RBC 3.54 L Hgb 10.1 L Hct 31.7 L Plt Count 551 H Neutrophils # 20.3 H Lymphocytes # 0.4 L Monocytes # 1.2 H Sodium Potassium Chloride BUN Creatinine Est GFR (CKD-EPI)AfAm Est GFR (CKD-EPI)NonAf Glucose POC Glucose (mg/dL) 127 H Plasma Lactic Acid Jack Calcium Total Protein Albumin Procalcitonin Urine Protein Urine Ketones Ur Leukocyte Esterase Urine WBC Urine Bacteria Urine Mucus Vancomycin Trough - Diagnostic Findings Chest x-ray: report reviewed, image reviewed Additional studies: EKG reviewed Assessment and Plan Plan: Assessment: #1. Acute hypoxic respiratory failure possibly related to aspiration pneumonia, initial chest x-ray showed evidence of interstitial and airspace pneumonia more so on the left lower lobe, possibility of mild heart failure is not excluded #2. Recent COVID 19 infection in December 2019 #3. Clogged PEG tube #4. Left hip infected decubitus ulcer, status post surgical debridement, and drainage of the abscess on 03/18/2020 by vascular surgery, cultures are positive for gram-negative bacilli #5. Acute urinary tract infection and urine culture positive for E. coli #6. Advanced dementia #7. Chronic kidney disease, unspecified #8. Seizure disorder #9. Chronic dysphagia, status post PEG tube placement for nutritional support #10. Chronic generalized medical debility, patient is bedbound, has chronic contractures of upper and lower extremities Plan: Continue current medical treatment, continue current antibiotics, ID service is following, managing antibiotics, left hip incision has been debrided, Surgery is following. Patient is tolerating oral tube feedings, we'll continue current medical treatment, denies any respiratory distress at the moment. We will follow I performed a history & physical examination of the patient and discussed their management with my nurse practitioner, Sanjuanita Hoffman. I reviewed the nurse practitioner's note and agree with the documented findings and plan of care. Lung sounds are positive for diminished breath sounds The findings and the impression was discussed with the patient. I attest to the documentation by the nurse practitioner. Time with Patient: Greater than 30
[2020-03-19 16:51] LABS: Glucose,Whole Blood 118 mg/dL (75-99)
[2020-03-19] MEDS: traZODone HCL 100 MG TAB PEG/G-TUBE SCH (20:00)
--- NOTE | 2020-03-19 22:58 | P.PN ---
Progress Note - Text Progress Note Date: 03/19/20 Chief Complaint: PEG tube pulled out History of presenting complaint: This is a 64-year-old patient follows with Dr. fisher, resident of [facility]. EMS was called out. Patient was just in the hospital 2 weeks ago and a PEG tube was replaced by Dr. Michael Saunders. The PEG tube has been plugged up. They did use Coca-Cola with no help. Coats catheter was placed in the ER. Patient is a himself a poor historian. Patient's chronic medical debility condi tions including chronic medical debility, major cognitive impairment, severe protein calorie malnutrition. Patient is noted to have a fever in the ER. Tachycardic. PEG tube started working. Has a left hip stage IV decub. With purulent discharge.taken to the OR by Dr. Angeles.-About 400 mL of pus was obtained. Deep pocket. Aquacel gauze rope placed. Today-overnight patient became a bit congested. Tachycardic. Started getting 2 feeding. Patient's gastric residual was okay. Sinus tachycardia. Pulmonary was consulted. Patient other tired. Put on Ventimask. Review of systems: Attempted for constitutional, cardiovascular, GI, pulmonary. relevant finding as above Active Medications Acetaminophen (Acetaminophen Tab 325 Mg Tab) 650 mg PEG/G-TUBE Q6H PRN PRN Reason: Pain Last Admin: 03/19/20 06:21 Dose: 650 mg Documented by: Albuterol Sulfate (Albuterol Hfa Inhaler) 2 puff INHALATION RT-TID [facility] Last Admin: 03/19/20 20:05 Dose: 2 puff Documented by: Baclofen (Baclofen 10 Mg Tab) 5 mg PO TID@0000,0800,1600 [facility] Last Admin: 03/19/20 17:44 Dose: 5 mg Documented by: Bisacodyl (Bisacodyl 10 Mg Supp) 10 mg RECTAL Q72H PRN PRN Reason: Constipation Docusate Sodium (Docusate Oral Soln 100 Mg/10 Ml Cup) 100 mg PEG/G-TUBE BID@0800,1600 [facility] Last Admin: 03/19/20 17:45 Dose: 100 mg Documented by: Heparin Sodium (Porcine) (Heparin Sodium,Porcine 5,000 Unit/Ml 1 Ml Vial) 5,000 unit SQ Q8HR [facility] Last Admin: 03/19/20 17:44 Dose: 5,000 unit Documented by: Ceftriaxone Sodium 2 gm/ (Sodium Chloride) 50 mls @ 100 mls/hr IVPB Q24HR [facility] Last Admin: 03/19/20 08:39 Dose: 100 mls/hr Documented by: Miscellaneous Information (Pneumonia Protocol [facility] 1 each PO ONCE PRN PRN Reason: Per Protocol Non-Formulary Medication (Miconazole Nitrate [Lotrimin Af Powder]) 1 applic TOPICAL BID@0800,1600 [facility] Last Admin: 03/19/20 17:33 Dose: Not Given Documented by: Polyethylene Glycol (Polyethylene Glycol 3350 17 Gm Powd.Pack) 17 gm PEG/G-TUBE DAILY PRN PRN Reason: Constipation Risperidone (Risperidone 0.5 Mg Tab) 0.5 mg PEG/G-TUBE BID@0800,1600 [facility] Last Admin: 03/19/20 18:16 Dose: 0.5 mg Documented by: Trazodone HCl (Trazodone Hcl 100 Mg Tab) 100 mg PEG/G-TUBE HS@1999 [facility] Last Admin: 03/19/20 20:00 Dose: 100 mg Documented by: Triamcinolone Acetonide (Triamcinolone 0.1% Cream 80 Gm Tube) 1 applic TOPICAL BID@799,1999 [facility] Last Admin: 03/19/20 20:01 Dose: 1 applic Documented by: Valproic Acid (Valproic Acid Oral Soln 250 Mg/5 Ml Cup) 250 mg PEG/G-TUBE Q6H [facility] Last Admin: 03/19/20 17:45 Dose: 250 mg Documented by: Past medical history to include: Dementia, hypertension, renal disease, seizure disorder, COVID in December 2019, protein calorie malnutrition Social history: Ex-smoker. Currently at [facility] Family history: Patient cannot tell Physical examination: VITAL SIGNS: 98.7, 1:30, 34, 116/75, 93% on 3 L GENERAL: BMI 21.2,, reclining in bed, short of breath lethargic EYES: Pupils equal. Conjunctiva pale. HEENT: External appearance of nose and ears normal, oral cavity dry. NECK: JVD unable to assess; masses not palpable. HEART: First and second heart sounds are normal; no edema. LUNGS: Respiratory rate normal; decreased breath sounds ABDOMEN: Soft, nontender, liver spleen not palpable, no masses palpable, PEG tube 2 feeding PSYCH: Lethargic NEUROLOGICAL: extremities are contracted MUSCULAR skeletal: Diffuse wasting of muscles loss of subcutaneous fat, bony prominences DERMATOLOGICAL: Dressing over the left hip wound. Stage IV Labs: March 19: White count 22.4 hemoglobin 10.1 platelets 551 potassium 5.1 bun 32 creatinine 2.20 Chest x-ray showing infiltrate on the right base. Personally reviewed by me March 18: White count 7.18 globin 9.9 platelets 537 potassium 5.1 creatinine 1.5 pro-calcitonin 0.20 White count 14.6 hemoglobin 11.6 platelets 550 potassium 5.4 creatinine 0.46 lactic acid 3.2 Wound ynyafhx-mptw-onfkffan bacilli UA positive for leukoesterase, WBC Urine culture-E. coli EKG tracing personally reviewed by me-shows normal sinus rhythm Chest x-ray film personally reviewed by me-infiltrates Blood culture-[03/15/2020] coagulase-negative staph Urine rrrgduj-srsh-ragruwpd bacilli Assessment: -Pneumonia, suspect gram-negative orgasm, causing sepsis, with worsening consolidation in the right base. -Acute hypoxic respiratory failure from pneumonia-worsening -Left hip stage IV decubitus ulcer, POA, infected -Left hip abscess, I&D large amount of pus obtained. -Possible UTI with cystitis seconded to Coats catheter, from E. coli -positive blood cultures -coagulase-negative staph possible contaminant -PEG tube initially not functioning-now working. -Chronic medical debility -All 4 limbs contracture -Major cognitive impairment due to advance dementia -Moderate protein calorie malnutrition, with extensive loss of muscle mass -Seizure disorder Plan: IV ceftriaxone,, vancomycin. Pulmonary was consulted. Maintain aspiration precautions. Oxygen supplementations. Prognosis guarded. Advanced care planning: Spoke to patient's legal guardian court-appointed, Vashti. Given an update of patient's overall guarded prognosis. Including the course of events. Answer questions. Given my suggestion she is agreed to proceed to make the patient no code. Further course will be dependent on patient's clinical course. Given the understanding that prognosis is guarded. About 20 minutes was spent for this.
[2020-03-20 00:59] LABS: Glucose,Whole Blood 114 mg/dL (75-99)
[2020-03-20] MEDS: VALPROIC ACID ORAL SOLN 250 MG/5 ML CUP PEG/G-TUBE SCH ×2 (05:14→12:05)
[2020-03-20 06:09] LABS: Glucose,Whole Blood 116 mg/dL (75-99)
[2020-03-20] MEDS: ALBUTEROL HFA INHALER INHALATION SCH ×2 (07:22→11:50)
[2020-03-20] MEDS: MICONAZOLE NITRATE TOPICAL SCH ×2 (09:13→16:03)
[2020-03-20] MEDS: TRIAMCINOLONE 0.1% CREAM 80 GM TUBE TOPICAL SCH (09:14)
[2020-03-20] MEDS: DOCUSATE ORAL SOLN 100 MG/10 ML CUP PEG/G-TUBE SCH (09:17)
[2020-03-20] MEDS: BACLOFEN 10 MG TAB PO SCH (09:17)
[2020-03-20] MEDS: risperiDONE 0.5 MG TAB PEG/G-TUBE SCH (09:17)
[2020-03-20] MEDS: HEPARIN SODIUM,PORCINE 5,000 UNIT/ML 1 ML VIAL SQ SCH (09:17)
[2020-03-20 09:39] LABS: African American GFR (CKD) 31.8 (60.0-200.0); Non-African American GFR(CKD) 27.5 (60.0-200.0)
[2020-03-20 10:32] VITALS: BP 115/72; PULSE 111; RESP 26; TEMP 98.7
[2020-03-20 11:21] LABS: Glucose,Whole Blood 113 mg/dL (75-99)
[2020-03-20] MEDS ORDERED: PIPERACILLIN-TAZOBACTAM 3.375 GM in SODIUM CHLORIDE 0.9% 100 ML IVPB SCH (12:00)
[2020-03-20] MEDS ORDERED: SCOPOLAMINE 1.5MG/72HR PATCH TRANSDERM STA (12:36)
[2020-03-20] MEDS ORDERED: ATROPINE OPHTH SOLN 1% 5ML BTL SUBLINGUAL PRN (12:44)
--- NOTE | 2020-03-20 12:48 | P.PN ---
Subjective Progress Note Date: 03/20/20 Principal diagnosis: Nonfunctioning PEG tube, acute hypoxic respiratory failure 64-year-old white male patient who is a poor historian, has history of advanced dementia, seizure disorder, chronic dysphagia, has a PEG tube in place for nutritional support, chronic kidney disease, overall chronic medical debility, chronic contractures of upper and lower extremities, patient is bedbound. Patient is a resident of a local [facility]. He had a history of COVID 19 infection in December 2019. Apparently at the custodial patient's PEG tube became clogged, and the staff was unable tone clogged using [employer]. The PEG tube was recently replaced by Dr. Saunders 2 weeks prior. Patient has been tachycardic, and febrile in the emergency department, his temperature was 102.2F. His chest x-ray showed evidence of interstitial and airspace pneumonia in the left lower lobe. Patient had mild leukocytosis, with a white blood cell count of 14.6, lactic acid was elevated at 3.2, his LFTs were within normal limits, urinalysis showed possibility of underlying urinary tract infection, and urine cultures were positive for E. coli, patient also has a wound on his buttock, and urine culture was positive for gram-negative bacilli, fungal culture is pending, blood cultures from 03/15/2020 was positive for coagulase-negative staph. Patient is currently on azithromycin, Rocephin, and vancomycin, ID service is following, during her evaluation patient is resting quietly in bed, he is nonverbal, not providing any answers, he is currently on 3 L of oxygen a pulse ox of 95%, does not appear to be in any respiratory distress, he is afebrile today. He has 2 feedings going through his PEG tube with TwoCal at 45 ML per hour, tolerating tube feedings well, his chest x-ray from 03/19/2020 shows chronic changes with worsening bibasilar Infiltrates and/or atelectasis. On 03/12/2020 patient seen in follow-up on medical floor, his respirations are more tachypneic and labored, he is more congested, he is audibly congested and wheezy, he is awake, but drowsy, patient is currently on 5 L of oxygen his pulse ox is 88%, per nursing staff respiratory status and work of breathing have incre ased since yesterday with increased congestion, and dyspnea and oxygen demand. He is tachycardic with a rate of 111-136 BPM, is had some low-grade fevers. Yesterday's chest x-ray showed chronic changes with worsening bibasilar Infiltrates and atelectasis and there was suspicion for aspiration pneumonia. His labs today show slightly worsening creatinine of 2.4, his pro-calcitonin level was 0.20 labs from today. He remains on antibiotics in the form of Zosyn. He has PEG tube in place, he is receiving tube feedings for nutritional support, CODE STATUS is DO NOT RESUSCITATE, apparently the attending physician updated patient's legal guardian regarding his worsening respiratory status, and overall poor prognosis and the legal guardian wanted to make the patient comfortable. Objective - Vital Signs Vital signs: Vital Signs Temp 98.7 F 03/20/20 09:13 Pulse 111 H 03/20/20 09:13 Resp 26 H 03/20/20 09:13 BP 115/72 03/20/20 09:13 Pulse Ox 88 L 03/20/20 09:13 Intake & Output 03/19/20 03/20/20 03/20/20 18:59 06:59 18:59 Intake Total 600 270 Output Total 400 Balance 600 -400 270 Weight 55.5 kg 59.5 kg Intake: Tube Feeding 600 270 Output: Urine 400 Other: Voiding Method External Catheter External Catheter External Catheter - Exam GENERAL EXAM: Confused, drowsy, 64-year-old white male, on 5 L of oxygen a pulse ox of 88%, tachypneic, congested HEAD: Normocephalic/atraumatic. EYES: Normal reaction of pupils, equal size. Conjunctiva pink, sclera white. NOSE: Clear with pink turbinates. THROAT: No erythema or exudates. NECK: No masses, no JVD, no thyroid enlargement, no adenopathy. CHEST: No chest wall deformity. Symmetrical expansion. LUNGS: Equal air entry with diminished breath sounds, no rhonchi, no wheezing CVS: Regular rate and rhythm, normal S1 and S2, no gallops, no murmurs, no rubs ABDOMEN: Soft, nontender. No hepatosplenomegaly, normal bowel sounds, no guarding or rigidity. PEG tube in place EXTREMITIES: No clubbing, no edema, no cyanosis, 2+ pulses and upper and lower extremities. MUSCULOSKELETAL: Muscle strength and tone normal. Left hip decubitus ulcer, covered the dressing SPINE: No scoliosis or deformity SKIN: No rashes CENTRAL NERVOUS SYSTEM: Confused, drowsy, No focal deficits, tone is normal in all 4 extremities. - Labs CBC & Chem 7: 03/19/20 05:51 03/20/20 06:05 Labs: Abnormal Lab Results - Last 24 Hours (Table) 03/19/20 03/20/20 03/20/20 Range/Units 16:48 00:57 06:05 Creatinine 2.4 H (0.6-1.5) mg/dL Est GFR (CKD-EPI)AfAm 31.8 L (60.0-200.0) Est GFR (CKD-EPI)NonAf 27.5 L (60.0-200.0) POC Glucose (mg/dL) 118 H 114 H (75-99) mg/dL 03/20/20 03/20/20 Range/Units 06:06 11:19 Creatinine (0.6-1.5) mg/dL Est GFR (CKD-EPI)AfAm (60.0-200.0) Est GFR (CKD-EPI)NonAf (60.0-200.0) POC Glucose (mg/dL) 116 H 113 H (75-99) mg/dL Microbiology - Last 24 Hours (Table) 03/15/20 15:30 Blood Culture - Preliminary Blood No Growth after 96 hours 03/17/20 Unknown Gram Stain - Preliminary Buttock Wound Culture - Preliminary Escherichia coli Assessment and Plan Plan: Assessment: #1. Acute hypoxic respiratory failure possibly related to aspiration pneumonia, initial chest x-ray showed evidence of interstitial and airspace pneumonia more so on the left lower lobe, possibility of mild heart failure is not excluded #2. Recent COVID 19 infection in December 2019 #3. Clogged PEG tube #4. Left hip infected decubitus ulcer, status post surgical debridement, and drainage of the abscess on 03/18/2020 by vascular surgery, cultures are positive for gram-negative bacilli #5. Acute urinary tract infection and urine culture positive for E. coli #6. Advanced dementia #7. Chronic kidney disease, unspecified #8. Seizure disorder #9. Chronic dysphagia, status post PEG tube placement for nutritional support #10. Chronic generalized medical debility, patient is bedbound, has chronic contractures of upper and lower extremities Plan: Patient's restrictive status has declined in the last 24 hours, he is more congested, more dyspneic, he is requiring more oxygen, continue with current antibiotics, had the bed up at least 30 at all times, maintain aspiration precautions, overall prognosis is poor based on his chronic generalized medical debility, advanced dementia, high risk for aspiration, and multiple medical conditions. Nursing staff reports that the attending physician has updated the legal guardian and the plan is to proceed with comfort care measures once patient's family arrives I performed a history & physical examination of the patient and discussed their management with my nurse practitioner, Sanjuanita Hoffman. I reviewed the nurse practitioner's note and agree with the documented findings and plan of care. Lung sounds are positive for diminished breath sounds The findings and the impression was discussed with the patient. I attest to the documentation by the nurse practitioner. Time with Patient: Less than 30
[2020-03-20 13:36] VITALS: BMI 16.4
--- NOTE | 2020-03-20 14:48 | P.PN ---
Subjective Progress Note Date: 03/20/20 HISTORY OF PRESENT ILLNESS This is a 64-year-old male patient being followed for left hip infected pressure ulcer and UTI. Patient has been covered with Rocephin and vancomycin. Vancomycin is currently on hold due to toxic level of vancomycin. Patient is status post surgical debridement and drainage of left hip decubitus ulcer by Dr. Sharpe. Temperature max 100.0. Heart rate 111, respiratory rate 26, blood pressure 115/72, pulse ox 88% on 5 L. Creatinine 2.4 which is worsening. Chest x-ray yesterday revealed chronic changes with worsening bibasilar acute infiltrate and/or atelectasis. Patient has more chest congestion today with bilateral rhonchi. Patient is to be transitioned to comfort care and waiting for attending. Urine culture is E. coli. Vancomycin to remain on hold. PHYSICAL EXAMINATION Gen: This is a 64-year-old male, cachectic appearing. HEENT: Head is atraumatic, normocephalic. Pupils equal, round. Sclerae is anicteric. NECK: Supple. No JVD. No lymphadenopathy. LUNGS: Coarse breath sounds bilaterally. No intercostal retractions. HEART: Regular rate and rhythm. No murmur. ABDOMEN: Soft. Bowel sounds are present. No masses. No tenderness. PEG tube in place, Coats catheter in place. EXTREMITIES: No pedal edema. No calf tenderness. ASSESSMENT Left hip infected pressure ulcer UTI Acute kidney injury PLAN Discontinue Rocephin and start Zosyn. Monitor kidney function closely Further recommendations patient progresses Continue supportive care. The above dictated assessment and findings were discussed with Dr. Espinoza. The impression and plan of care have been directed as dictated. Alyssa Jara nurse practitioner acting as scribe for Dr. Espinoza. Objective - Vital Signs Vital signs: Vital Signs Temp 98.7 F 03/20/20 09:13 Pulse 111 H 03/20/20 09:13 Resp 26 H 03/20/20 09:13 BP 115/72 03/20/20 09:13 Pulse Ox 88 L 03/20/20 09:13 Intake & Output 03/19/20 03/20/20 03/20/20 18:59 06:59 18:59 Intake Total 600 270 Output Total 400 Balance 600 -400 270 Weight 55.5 kg 59.5 kg 59.5 kg Intake: Tube Feeding 600 270 Output: Urine 400 Other: Voiding Method External Catheter External Catheter External Catheter - Labs CBC & Chem 7: 03/19/20 05:51 03/20/20 06:05 Labs: Abnormal Lab Results - Last 24 Hours (Table) 03/19/20 03/20/20 03/20/20 Range/Units 16:48 00:57 06:05 Creatinine 2.4 H (0.6-1.5) mg/dL Est GFR (CKD-EPI)AfAm 31.8 L (60.0-200.0) Est GFR (CKD-EPI)NonAf 27.5 L (60.0-200.0) POC Glucose (mg/dL) 118 H 114 H (75-99) mg/dL 03/20/20 03/20/20 Range/Units 06:06 11:19 Creatinine (0.6-1.5) mg/dL Est GFR (CKD-EPI)AfAm (60.0-200.0) Est GFR (CKD-EPI)NonAf (60.0-200.0) POC Glucose (mg/dL) 116 H 113 H (75-99) mg/dL Microbiology - Last 24 Hours (Table) 03/15/20 15:30 Blood Culture - Preliminary Blood No Growth after 96 hours 03/17/20 Unknown Gram Stain - Preliminary Buttock Wound Culture - Preliminary Escherichia coli
[2020-03-20] MEDS ORDERED: MORPHINE SULFATE (100 MG/2 ML) 100 MG in SODIUM CHLORIDE 0.9% 100 ML IV SCH (16:00)
--- NOTE | 2020-03-21 17:08 | P.DS ---
Providers Date of admission: 03/15/20 17:54 Expected date of discharge: 03/20/20 Attending physician: Raymond Patel Consults: 03/15/20 21:58 Consult Physician Routine Consulting Provider: Lorrie Saunders Consult Reason/Comments: reinsert peg tube Do you want consulting provider notified?: Yes 03/16/20 14:46 Consult Physician Routine Consulting Provider: Jose Sahrpe Consult Reason/Comments: Left hip decub Do you want consulting provider notified?: Yes 03/16/20 20:35 Consult Physician Routine Consulting Provider: Jewel Espinoza Consult Reason/Comments: gram + cocci blood culture Do you want consulting provider notified?: Yes, Notify in am 03/19/20 10:26 Consult Physician Routine Consulting Provider: Kika Garrison Consult Reason/Comments: Tachypnea Do you want consulting provider notified?: Yes Primary care physician: Yoni Cruz MD Hospital Course: Chief Complaint: PEG tube pulled out History of presenting complaint: This is a 64-year-old patient follows with Dr. cruz, resident of [facility]. EMS was called out. Patient was just in the hospital 2 weeks ago and a PEG tube was replaced by Dr. Michael Saunders. The PEG tube has been plugged up. They did use [employer] with no help. Coats catheter was placed in the ER. Patient is a himself a poor historian. Patient's chronic medical debility conditions including chronic medical debility, major cognitive impairment, severe protein calorie malnutrition. Patient is noted to have a fever in the ER. Tachycardic. PEG tube started working. Has a left hip stage IV decub. With purulent discharge.taken to the OR by Dr. Angeles.-About 400 mL of pus was obtained. Deep pocket. Aquacel gauze rope placed. I did speak to patient's legal guardian caro rogers-patient was made DO NOT RESUSCITATE. Patient's respiratory status deteriorated. Pulmonary was consulted. Today-patient is donating further. Again legal guardian contacted. Patient was made comfortable. Scopolamine patch morphine ordered. Patient succumbed to the underlying condition. Patient Total time spent today was about 1 hour with over 30 minutes of discussion. Consultation: Dr. Kika Garrison-pulmonary Dr. Espinoza-ID Dr. Sharpe-vascular Dr. Michael Saunders-GI Past medical history to include: Dementia, hypertension, renal disease, seizure disorder, COVID in December 2019, protein calorie malnutrition Social history: Ex-smoker. [facility] Family history: Patient cannot tell Physical examination: Earlier today VITAL SIGNS: Noted in electronic chart GENERAL: BMI 21.2,, reclining in bed, short of breath lethargic EYES: Pupils equal. Conjunctiva pale. HEENT: External appearance of nose and ears normal, oral cavity dry. NECK: JVD unable to assess; masses not palpable. HEART: First and second heart sounds are normal; no edema. LUNGS: Respiratory rate increased, audible crackles ABDOMEN: Soft, nontender, liver spleen not palpable, no masses palpable, PEG tube 2 feeding PSYCH: Lethargic NEUROLOGICAL: extremities are contracted MUSCULAR skeletal: Diffuse wasting of muscles loss of subcutaneous fat, bony prominences DERMATOLOGICAL: Dressing over the left hip wound. Stage IV Labs: March 19: White count 22.4 hemoglobin 10.1 platelets 551 potassium 5.1 bun 32 creatinine 2.20 Chest x-ray showing infiltrate on the right base. Personally reviewed by me March 18: White count 7.18 globin 9.9 platelets 537 potassium 5.1 creatinine 1.5 pro-calcitonin 0.20 White count 14.6 hemoglobin 11.6 platelets 550 potassium 5.4 creatinine 0.46 lactic acid 3.2 Wound bxzylwr-zfsb-dmyxzcfk bacilli UA positive for leukoesterase, WBC Urine culture-E. coli EKG tracing personally reviewed by me-shows normal sinus rhythm Chest x-ray film personally reviewed by me-infiltrates Blood culture-[03/15/2020] coagulase-negative staph Urine iznlaha-oiry-xgduorna bacilli Cause of : -Pneumonia, suspect gram-negative orgasm, causing sepsis, with worsening consolidation in the right base. Other medical conditions followed: -Acute hypoxic respiratory failure from pneumonia-worsening -Left hip stage IV decubitus ulcer, POA, infected -Left hip abscess, I&D large amount of pus obtained. -Possible UTI with cystitis seconded to Coats catheter, from E. coli -positive blood cultures -coagulase-negative staph possible contaminant -PEG tube initially not functioning-now working. -Chronic medical debility -All 4 limbs contracture -Major cognitive impairment due to advance dementia -Moderate protein calorie malnutrition, with extensive loss of muscle mass -Seizure disorder Disposition: Patient Plan - Discharge Summary Discharge Rx Participant: No New Discharge Prescriptions: No Action Acetaminophen [Tylenol] 650 mg PEG/G-TUBE Q6H PRN PRN Reason: Pain Valproic Acid Oral Soln [Depakene Syrup] 250 mg PEG/G-TUBE Q6H Ipratropium-Albuterol Nebulize [Duoneb 0.5 mg-3 mg/3 ml Soln] 3 ml INHALATION RT-Q8H polyethylene glycoL 3350 [Miralax] 17 gm PEG/G-TUBE DAILY PRN PRN Reason: Constipation Docusate Oral Soln [Colace Oral Soln] 100 mg PEG/G-TUBE BID@0800,1600 traZODone HCL 100 mg PEG/G-TUBE HS@1999 bisacodyL [Bisacodyl] 10 mg RECTAL Q72H PRN PRN Reason: Constipation risperiDONE [RisperDAL] 0.5 mg PEG/G-TUBE BID@0800,1600 Baclofen 5 mg PEG/G-TUBE TID@0000,0800,1600 Miconazole Nitrate [Lotrimin AF Powder] 1 applic TOPICAL BID@0800,1600 Hydrocortisone Cream [Hydrocortisone 2.5% Cream] 1 applic TOPICAL BID@ 0800,1999 Discharge Medication List Acetaminophen [Tylenol] 650 mg PEG/G-TUBE Q6H PRN 01/04/20 [History] Docusate Oral Soln [Colace Oral Soln] 100 mg PEG/G-TUBE BID@0800,1600 01/04/20 [History] Ipratropium-Albuterol Nebulize [Duoneb 0.5 mg-3 mg/3 ml Soln] 3 ml INHALATION RT-Q8H 01/04/20 [History] Valproic Acid Oral Soln [Depakene Syrup] 250 mg PEG/G-TUBE Q6H 01/04/20 [His tory] polyethylene glycoL 3350 [Miralax] 17 gm PEG/G-TUBE DAILY PRN 01/04/20 [History] traZODone HCL 100 mg PEG/G-TUBE HS@199901/04/20 [History] Baclofen 5 mg PEG/G-TUBE TID@0000,0800,1600 03/01/20 [History] Hydrocortisone Cream [Hydrocortisone 2.5% Cream] 1 applic TOPICAL BID@799,199903/01/20 [History] Miconazole Nitrate [Lotrimin AF Powder] 1 applic TOPICAL BID@0800,159903/01/20 [History] bisacodyL [Bisacodyl] 10 mg RECTAL Q72H PRN 03/01/20 [History] risperiDONE [RisperDAL] 0.5 mg PEG/G-TUBE BID@0800,1600 03/01/20 [History] Follow up Appointment(s)/Referral(s): Lita Toussaint, [NON-STAFF] - As Needed Yoni Cruz MD [Primary Care Provider] - 1-2 days Discharge Disposition: - Preliminary Cause of Preliminary Cause of : Pneumonia
--- NOTE | 2020-03-24 14:49 | CDI ---
Documentation Clarification Form Date: 03/24/2020 02:36:13 PM From: Nayely PinedaWebsterMELA, CCDS Admit Date: 03/15/2020 05:54:00 PM Patient Name: Randall Yap I Visit Number: [id number] Discharge Date: 03/20/2020 04:26:00 PM ATTENTION: The Clinical Documentation Specialists (CDI) and [facility] Coding Staff appreciate your assistance in clarifying documentation. Please respond to the clarification below the line at the bottom and electronically sign. The CDI & [facility] Coding staff will review the response and follow-up if needed. Please note: Queries are made part of the Legal Health Record. If you have any questions, please contact the author of this message via ITS. Dr. Jose Sharpe: Per your progress notes/operative note, a debridement was performed on 03/17: "Decubitus ulcer, lateral aspect of the left hip. MEASUREMENT: 4 x 3 cm. Local with 1% Lidocaine. There was some devitalized tissue. Using a sharp knife, we excised the devitalized tissue, and then we found that there was a cavity of abscess, which was drained. All the pus came out and all the devitalized tissue was excised with a sharp knife. We took deep culture and sent for culture and sensitivity." Per the documentation, the patient has a Stage IV Left Buttock/Hip Decubitus Ulcer Per the Nursing Wound Assessment and the Infection Disease Consult 03/17, the patient has an infected Left Heel Pressure Ulcer. History/Risk Factors: Dementia, Seizure Disorder, Renal Disease, Hypertension, COVID in 2019, Former smoker, resides [place]. Has PEG tube, Chronic medical debility, Contractures in all 4 limbs. Clinical Indicators: Presented to the ED on 03/15 with a plugged PEG tube, replaced in the ED. Admitted with Sepsis, Gram Negative Pneumonia, E Coli UTI, Severe Protein Calorie Malnutrition. Blood Cultures: 03/15: Final: Coagulase Neg Staph x1/3. Urine Culture: Final 03/15 E Coli Wound Culture: Final 03/17 E Coli, Pseudomonas aeruginosa Treatment: IV fluid bolus 1,000 mls @ 999 mls/hr q1H, IV fluid 1,000 mls @ 130 mls/hr q7, IV Rocephin, IV Azithromycin, IV Zosyn/Tazobactam, IV Vancomycin. Five elements required for accurate and compliant documentation of a debridement: 1.Technique used (e.g., excisional, excised, cutting, etc.) 2.Instrument(s) used (e.g., scalpel, curette, etc.) 3.Nature of the tissue removed (e.g., necrotic, devitalized tissues, non- viable tissue, etc.) 4.Appearance and size of the wound (e.g., down to fresh bleeding tissue, 7cm x 10cm, etc.) 5.Depth of the debridement* (e.g., skin, subcutaneous tissue, fascia, muscle, bone, etc.) In order to capture the severity of condition and code the appropriate procedure; could you please document the following: Excisional debridement (the removal of necrotic, devitalized tissue or slough by means of cutting away of tissue) Non-excisional debridement (the removal of necrotic, devitalized tissue or slough by means of flushing, brushing, or washing. (Irrigation) Other; please specify Unable to determine (Last Revision: May 2017) excisional debridement MTDD
--- NOTE | 2020-03-24 14:59 | CDI ---
Documentation Clarification Form Date: 03/24/2020 02:50:34 PM From: Nayely PinedaWebsterMELA lira, CCDS Admit Date: 03/15/2020 05:54:00 PM Patient Name: Randall Yap I Visit Number: [id number] Discharge Date: 03/20/2020 04:26:00 PM ATTENTION: The Clinical Documentation Specialists (CDI) and [facility] Coding Staff appreciate your assistance in clarifying documentation. Please respond to the clarification below the line at the bottom and electronically sign. The CDI & [facility] Coding staff will review the response and follow-up if needed. Please note: Queries are made part of the Legal Health Record. If you have any questions, please contact the author of this message via ITS. Dr. Jewel Espinoza: Per the Nursing Wound Assessment and the Infection Disease Consult 03/17, the patient has an infected Left Heel Pressure Ulcer without further specificity. History/Risk Factors: Dementia, Seizure Disorder, Renal Disease, Hypertension, COVID in 2019, Former smoker, resides in [place]. Has PEG tube, Chronic medical debility, Contractures in all 4 limbs. Clinical Indicators: Presented to the ED on 03/15 with a plugged PEG tube, replaced in the ED. Admitted with Sepsis, Gram Negative Pneumonia, E Coli UTI, Severe Protein Calorie Malnutrition. Blood Cultures: 03/15: Final: Coagulase Neg Staph x1/3. Urine Culture: Final 03/15 E Coli Wound Culture: Final 03/17 E Coli, Pseudomonas aeruginosa Treatment: IV fluid bolus 1,000 mls @ 999 mls/hr q1H, IV fluid 1,000 mls @ 130 mls/hr q7, IV Rocephin, IV Azithromycin, IV Zosyn/Tazobactam, IV Vancomycin. Please clarify if the documented left heel ulcer was present on admission or developed during the patient's hospital stay: ____Y = Yes, the condition was present at the time of the order for inpatient admission. ____N = No, the condition was not present at the time of the order for inpatient admission. ____W = Clinically undetermined if the condition was present at the time of the order for inpatient admission. Left Heel Pressure Ulcer Stage, please specify: Stage I Tay II Stage III Stage IV Unstageable Other, please specify: Unable to Determine (Last Revision: Jan 2018) infected left hip not heel , stage 3 wound infection , present on admission [facility]
== END 2020-03-20 16:26 | disposition expired | DRG 853 ==
LOC: EC 15:05 → 4SSUR 17:54
PROVIDERS: ADMIT Hospitalist; ATTEND Hospitalist
PROC: 0D20XUZ Change Feeding Device in Upper Intestinal Tract, External Approach (ICD-10-PCS; 2020-03-15)
PROC: 3E0G76Z Introduction of Nutritional Substance into Upper GI, Via Natural or Artificial Opening (ICD-10-PCS; 2020-03-16)
PROC: 0JB70ZZ Excision of Back Subcutaneous Tissue and Fascia, Open Approach (ICD-10-PCS; principal; 2020-03-17)
DX: A41.50 Gram-negative sepsis, unspecified (principal); L89.223 Pressure ulcer of left hip, stage 3; J96.01 Acute respiratory failure with hypoxia; J69.0 Pneumonitis due to inhalation of food and vomit; J15.6 Pneumonia due to other Gram-negative bacteria; E43 Unspecified severe protein-calorie malnutrition; E87.2 Acidosis; N17.9 Acute kidney failure, unspecified; R64 Cachexia; K94.23 Gastrostomy malfunction; T83.511A Infection and inflammatory reaction due to indwelling urethral catheter, initial encounter; L02.416 Cutaneous abscess of left lower limb; Z68.1 Body mass index [BMI] 19.9 or less, adult; F03.90 Unspecified dementia, unspecified severity, without behavioral disturbance, psychotic disturbance, mood disturbance, and anxiety; N30.90 Cystitis, unspecified without hematuria; G40.909 Epilepsy, unspecified, not intractable, without status epilepticus; Z66 Do not resuscitate; Z51.5 Encounter for palliative care; I12.9 Hypertensive chronic kidney disease with stage 1 through stage 4 chronic kidney disease, or unspecified chronic kidney disease; N18.9 Chronic kidney disease, unspecified; B96.20 Unspecified Escherichia coli [E. coli] as the cause of diseases classified elsewhere; E86.0 Dehydration; R13.10 Dysphagia, unspecified; M62.462 Contracture of muscle, left lower leg; M62.461 Contracture of muscle, right lower leg; M62.422 Contracture of muscle, left upper arm; M62.421 Contracture of muscle, right upper arm; R53.81 Other malaise; Z86.16 Personal history of COVID-19; Z79.899 Other long term (current) drug therapy; Z87.01 Personal history of pneumonia (recurrent); Z87.891 Personal history of nicotine dependence; Z86.718 Personal history of other venous thrombosis and embolism; Z85.9 Personal history of malignant neoplasm, unspecified; Z74.01 Bed confinement status; Z88.5 Allergy status to narcotic agent; Y83.3 Surgical operation with formation of external stoma as the cause of abnormal reaction of the patient, or of later complication, without mention of misadventure at the time of the procedure; Y92.122 Bedroom in nursing home as the place of occurrence of the external cause
CPT/HCPCS: 36415; 43762; 71045; 71046; 80048; 80053; 80202; 81001; 82550; 82565; 83605; 83690; 83735; 84145; 85025; 85027; 87040; 87070; 87077; 87086; 87186; 87205; 93005; 94640; 96361; 96374; 99291